=== PATIENT | female | born 1985 | race Caucasian/White ===

== ENCOUNTER 2023-09-13 10:59 | Outpatient (CLI) | payer MEDICAID, SELFPAY ==
[2023-09-13 12:02] VITALS: BP 112/67; PULSE 70
[2023-09-13 12:06] VITALS: BP 112/67; PULSE 70; TEMP 36.5
--- NOTE | 2023-09-29 12:27 | W.OBNST ---
Date of service: 09/29/23 Time of Service: 12:27 NST Evaluation Reason for NST Reasons for Nonstress Test: GDM-INSULIN Gestational Age Gestational Age in Weeks and Days: 37 Weeks and 2Days Test and Monitor Explained Test/Monitor Explained: Test Explained Vital Signs Blood Pressure: 112/67 Pulse: 70 Temperature: 97.7 F Urine Results Urine Protein: Negative Urine Ketones: Negative Urine Glucose: Negative Urine Blood: Negative NST Information Date on Monitor: 09/13/23 Time on Monitor: 11:54 NST Interventions: None NST Evaluation Patient States Movement: Present FHR Baseline: 130 Variability: Moderate 6-25 bpm Accelerations: 15x15 Decelerations: None NST Results: Reactive Note Ultrasound Done: N/A. NST Note Note: Reactive NST. NST Reviewed and Verified by: Kathia Menchaca
[2023-09-29 12:28] VITALS: BP 112/67; PULSE 70; TEMP 36.5
== END 2023-09-13 12:30 | disposition home or self-care (01) ==
LOC: BCD 11:00 → OBS 11:58
PROVIDERS: Visit Provider Advanced Practice Midwife
DX: O24.414 Gestational diabetes mellitus in pregnancy, insulin controlled (principal); Z3A.37 37 weeks gestation of pregnancy
CPT/HCPCS: 59025

== ENCOUNTER 2023-10-03 07:38 | Inpatient (IN) | payer MEDICAID, SELFPAY ==
[2023-10-03] VITALS (7 sets, daily range): BP systolic 135–137; BP diastolic 76–86; PULSE 88–103; RESP 16; TEMP 36.3–36.9; BMI 31.9
--- NOTE | 2023-10-03 07:41 | HPE_ITS ---
Date of service: 10/03/23 Time of Service: 08:00 Assessment and Plan Assessment and plan (1) Large for gestational age fetus affecting management of mother, antepartum: Status: Acute Assessment and plan: Pt is aware of the risk of shoulder dystocia. She was cautioned against the actual delivery in the tub to allow for more easy maneuvering if there is a shoulder dystocia. The team is aware of the risk. (2) Gestational diabetes mellitus (GDM): Status: Acute Assessment and plan: It has been well controlled on 10U NPH (3) Normal labor: Status: Acute Assessment and plan: Pt continuing to labor in various positions. (4) GBS (group B Streptococcus carrier), +RV culture, currently : Status: Acute Assessment and plan: Pt declines PCN treatment. She is aware of the risk for infection. OB-HPI Labor/Delivery History of Present Illness Reason for Visit: Labor Chief Complaint: Suspected Labor. UMAIR Calculator Estimated Delivery Date Method Current WG Current Estimate 10/02/23 LMP (Certain) 40w 1d Other Estimates 09/28/23 Ultrasound #1 40w 5d 10/04/23 Ultrasound #2 39w 6d History of Present Expected Delivery Route/Plan FOB [place]. Specific Issues/Plan -Pt entered care with [facility] @ 17w4d -GDM. Elevated 1hr Glucola @ 27w EGA. Diet control until 09/05/23. 10units NPH at bedtime beginning 36w1d 2/2 FCBGs 09/05/23. 36w1d Level 2 u/s at [facility]. Nl RANDA. AC 99%tile. EFW 80% 3174gm, 7lb 0oz. 09/13/23. 37w2d Transfer to [place] [facility]. counseled to have 2x/w NSTs. counseled to have IOL @39w - declines -LGA baby: 09/05/23 efw 7lbs (80%ile with AC >99%ile) -? bilateral talipes equinovarus (could not r/o club feet at 36wk sono) Narrative: Pt experienced ROM of clear fluid while in bed at 2am. Contractions started soon after that and by 5am they were about 5min apart. No bleeding. She arrived to the center around 7:15am. She has had some nausea and vomiting. Review of Systems Constitutional Constitutional: Reports system reviewed and no additional complaints, except as documented Genitourinary Genitourinary: Reports system reviewed and no additional complaints, except as documented Musculoskeletal Comments: No regular contractions PFSH All Active Problems (Updated 10/03/23 @ 08:03 by Macarena Correia MD) GBS (group B Streptococcus carrier), +RV culture, currently (Acute) Normal labor (Acute) Large for gestational age fetus affecting management of mother, antepartum (Acute) Gestational diabetes mellitus (GDM) (Acute) AC >99%ile Social History Smoking risk assessment performed?: No History History 1 Para Hx # Term Pregnancies Multiple births Hx # Pregnancies Ectopic pregnancies AB induced Hx Number of Living Children AB spontaneous Meds Allergies and Home Medications Allergies Allergy/AdvReac Type Severity Reaction Status Date / Time No Known Allergies Allergy Verified 09/28/23 13:45 Home Medications Medication Instructions Recorded Confirmed Type full well PO 09/13/23 09/28/23 History insulin NPH isoph U-100 human 100 10 unit (0.1 mL) subcut QPM #15 mL 09/13/23 09/28/23 Rx unit/mL (3 mL) subcutaneous pen (Novolin N FlexPen) blood-glucose meter (OneTouch #1 ea 09/29/23 09/29/23 Rx Ultra2 Meter) lancets 33 gauge (OneTouch Delica #100 ea 09/29/23 09/29/23 Rx Plus Lancet) Exam Physical Exam Vital signs: afebrile. Awaiting the rest of the vitals Detailed Labor and Delivery Exam Dilation: 8 Effacement (%): 90 Coleman Score: Cervical Points Exam 0 1 2 3 Dilation Closed 1-2cm 3-4 cm 5-6cm Effacement 0-30% 40-50% 60-70% 80% Consistency Firm Medium Soft Station -3 -2 -1,0 +1,+2 Position Posterior Mid Anterior Comments: Pt checked while in hands and knees so exact station was difficult to determine. Fetus A Heart Rate Baseline: 125 Detailed HEENT Exam Head: Present normocephalic and atraumatic Detailed Abdominal Exam Comments: gravid, nontender Detailed Neurological Exam Neurological: Present alert, oriented X3 and CN II-XII intact DetailedPsychiatric Exam Psychiatric: Present normal affect, normal thought process and cooperative Risk Assessment Risks Reviewed Risks Reviewed Upon Admission: Yes (Shoulder dystocia)
--- NOTE | 2023-10-03 08:57 | W.PM.OBNL1 ---
Date of service: 10/03/23 Time of Service: 09:00 Fetus A Monitor: Doppler Heart Rate Baseline: 140 Presentation: Cephalic FHR Rhythm: Regular Assessment and Plan Assessment and plan (1) Normal labor: Status: Acute Assessment and plan: Pt laboring in the tub. Lauren Thomas CPM present in room. FHR monitoring every half hour and reassuring. Pt tolerating contractions. (2) Large for gestational age fetus affecting management of mother, antepartum: Status: Acute Assessment and plan: Anesthesia providers notified of presence of pt on BC. Plan for appropriated dystocia awareness at time of delivery. Qualifiers: Fetus number: single or unspecified fetus Qualified Code(s): O36.60X0 - Maternal care for excessive growth, unspecified trimester, not applicable or unspecified (3) Gestational diabetes mellitus (GDM): Status: Acute Qualifiers: Gestational diabetes mellitus control: insulin-controlled Trimester: third trimester Qualified Code(s): O24.414 - Gestational diabetes mellitus in , insulin controlled
[2023-10-03 10:14] LABS: HCT 40.7 % (36.0-46.0); HGB 13.8 g/dL (11.2-15.7); MCH 31.3 pg (27.0-33.0); MCHC 33.9 % (32.0-36.0); MCV 92 fL (80-95); MPV 12.2 fL (8.0-11.0); Platelet Count 212 10^3/uL (130-400); RBC 4.41 10^6/uL (3.93-5.22); RDW-SD 43.8 fL; WBC 14.98 10^3/uL (4.4-10.8)
--- NOTE | 2023-10-03 10:59 | W.PM.OBNL1 ---
Date of service: 10/03/23 Time of Service: 10:59 Pelvic Exam Dilation: 10 Effacement (%): 100 station: +1 Vaginal Exam Presentation: Vertex Comments: There has been descent of vertex. Pt guided with maternal expulsive efforts while lying on R side. Will encourage pushing with contractions. Fetus A Monitor: External (US) Heart Rate Baseline: 145 Presentation: Cephalic Characteristics: Normal Assessment and Plan Assessment and plan (1) GBS (group B Streptococcus carrier), +RV culture, currently : Status: Acute Assessment and plan: Pt was counseled by admitting provider regarding recommendation for PCN while in active labor. No antibiotics administered (2) Normal labor: Status: Acute Assessment and plan: Pt will begin maternal expulsive efforts. (3) Large for gestational age fetus affecting management of mother, antepartum: Status: Acute Assessment and plan: satisfactory labor progress. Qualifiers: Fetus number: single or unspecified fetus Qualified Code(s): O36.60X0 - Maternal care for excessive growth, unspecified trimester, not applicable or unspecified Objective Abnormal lab results 10/03/23 Range/Units 09:50 WBC 14.98 H (4.4-10.8) 10^3/uL MPV 12.2 H (8.0-11.0) fL Temp Pulse Resp BP 98.1 F 103 H 16 135/83 10/03/23 09:09 10/03/23 08:15 10/03/23 08:15 10/03/23 08:15 Laboratory Results WBC 14.98 10^3/uL (4.4-10.8) H 10/03/23 09:50 RBC 4.41 10^6/uL (3.93-5.22) 10/03/23 09:50 Hgb 13.8 g/dL (11.2-15.7) 10/03/23 09:50 Hct 40.7 % (36.0-46.0) 10/03/23 09:50 MCV 92 fL (80-95) 10/03/23 09:50 MCH 31.3 pg (27.0-33.0) 10/03/23 09:50 MCHC 33.9 % (32.0-36.0) 10/03/23 09:50 RDW 13.0 % (11.7-14.6) 10/03/23 09:50 Plt Count 212 10^3/uL (130-400) 10/03/23 09:50 MPV 12.2 fL (8.0-11.0) H 10/03/23 09:50 Subjective Patient Reports: No new Complaints Interval history since last seen: SVE ~ 1 hour ago when pt sitting on toilet. Complete dilation with vtx at 0 station. Intermittent auscultation q 30min. No maternal expulsive efforts at this time. Results Hemoglobin/Hematocrit: Hgb 13.8 g/dL (11.2-15.7) 10/03/23 09:50 Hct 40.7 % (36.0-46.0) 10/03/23 09:50 Abnormal Lab Findings: Abnormal Labs 10/03/23 09:50 WBC 14.98 H MPV 12.2 H
--- NOTE | 2023-10-03 12:12 | W.PM.OBNL1 ---
Date of service: 10/03/23 Time of Service: 12:13 Pelvic Exam Dilation: 10 Effacement (%): 100 station: +1 Comments: 2cm of caput present. Pt pushing effectively with contractions. Will continue position changes to support effective maternal pushing. Contractions Monitor Mode: Palpation Contraction Frequency(min): q3 Contraction Duration(sec): 45 Intensity: Moderate Fetus A Monitor: Doppler Heart Rate Baseline: 140 Presentation: Cephalic Characteristics: Normal Assessment and Plan Assessment and plan (1) Large for gestational age fetus affecting management of mother, antepartum: Status: Acute Qualifiers: Fetus number: single or unspecified fetus Qualified Code(s): O36.60X0 - Maternal care for excessive growth, unspecified trimester, not applicable or unspecified (2) Normal labor: Status: Acute Objective Abnormal lab results 10/03/23 Range/Units 09:50 WBC 14.98 H (4.4-10.8) 10^3/uL MPV 12.2 H (8.0-11.0) fL Temp Pulse Resp BP 98.1 F 103 H 16 135/83 10/03/23 09:09 10/03/23 08:15 10/03/23 08:15 10/03/23 08:15 Laboratory Results WBC 14.98 10^3/uL (4.4-10.8) H 10/03/23 09:50 RBC 4.41 10^6/uL (3.93-5.22) 10/03/23 09:50 Hgb 13.8 g/dL (11.2-15.7) 10/03/23 09:50 Hct 40.7 % (36.0-46.0) 10/03/23 09:50 MCV 92 fL (80-95) 10/03/23 09:50 MCH 31.3 pg (27.0-33.0) 10/03/23 09:50 MCHC 33.9 % (32.0-36.0) 10/03/23 09:50 RDW 13.0 % (11.7-14.6) 10/03/23 09:50 Plt Count 212 10^3/uL (130-400) 10/03/23 09:50 MPV 12.2 fL (8.0-11.0) H 10/03/23 09:50 ABO/Rh B Positive 10/03/23 09:50 Antibody Screen NEGATIVE 10/03/23 09:50 Results Hemoglobin/Hematocrit: Hgb 13.8 g/dL (11.2-15.7) 10/03/23 09:50 Hct 40.7 % (36.0-46.0) 10/03/23 09:50 Abnormal Lab Findings: Abnormal Labs 10/03/23 09:50 WBC 14.98 H MPV 12.2 H
--- NOTE | 2023-10-03 14:55 | W.PM.OBNL1 ---
Date of service: 10/03/23 Time of Service: 14:55 Pelvic Exam station: +2 Comments: There has been progress since previous SVE. presenting part is lower and caput is no greater. I counseled pt that she has made progress and that I would encourage her to continue maternal expulsive efforts in lateral lying positions. Contractions Monitor Mode: Palpation Contraction Frequency(min): q3 Contraction Duration(sec): 45 Intensity: Moderate Fetus A Monitor: Doppler FHR Rhythm: Regular Assessment and Plan Assessment and plan (1) Normal labor: Status: Acute Assessment and plan: continue with current management. (2) Large for gestational age fetus affecting management of mother, antepartum: Status: Acute Qualifiers: Fetus number: single or unspecified fetus Qualified Code(s): O36.60X0 - Maternal care for excessive growth, unspecified trimester, not applicable or unspecified Objective Abnormal lab results 10/03/23 Range/Units 09:50 WBC 14.98 H (4.4-10.8) 10^3/uL MPV 12.2 H (8.0-11.0) fL Temp Pulse Resp BP 98.4 F 88 16 137/86 10/03/23 14:38 10/03/23 14:38 10/03/23 14:38 10/03/23 14:38 Laboratory Results WBC 14.98 10^3/uL (4.4-10.8) H 10/03/23 09:50 RBC 4.41 10^6/uL (3.93-5.22) 10/03/23 09:50 Hgb 13.8 g/dL (11.2-15.7) 10/03/23 09:50 Hct 40.7 % (36.0-46.0) 10/03/23 09:50 MCV 92 fL (80-95) 10/03/23 09:50 MCH 31.3 pg (27.0-33.0) 10/03/23 09:50 MCHC 33.9 % (32.0-36.0) 10/03/23 09:50 RDW 13.0 % (11.7-14.6) 10/03/23 09:50 Plt Count 212 10^3/uL (130-400) 10/03/23 09:50 MPV 12.2 fL (8.0-11.0) H 10/03/23 09:50 ABO/Rh B Positive 10/03/23 09:50 Antibody Screen NEGATIVE 10/03/23 09:50 Subjective Patient Reports: No new Complaints Interval history since last seen: pushing with contractions. Pt resting on R side. Tolerating contractions well. Results Hemoglobin/Hematocrit: Hgb 13.8 g/dL (11.2-15.7) 10/03/23 09:50 Hct 40.7 % (36.0-46.0) 10/03/23 09:50 Abnormal Lab Findings: Abnormal Labs 10/03/23 09:50 WBC 14.98 H MPV 12.2 H
--- NOTE | 2023-10-03 17:03 | W.PM.OBNL1 ---
Date of service: 10/03/23 Time of Service: 17:03 Informed Consent Informed Consent: Risk,Benefits,Alternatives Discussed (16:30 regarding Oxytocine augmentation, GBS IV prophylaxis.) Pelvic Exam Comments: Pelvic exam deferred. Pt siting on toilet during the conversation. Assessment and Plan Assessment and plan (1) Prolonged second stage (of labor): Status: Acute Assessment and plan: Pt has been engaged in maternal expulsive efforts since 11:30. vertex remains at +2 station with caput that has been stable in size. FHR continues to be monitored during contractions. No decelerations or irreg rhythm. Pt has declined Oxytocin for augmentation of labor. Will continue to assess labor progress at regular intervals. (2) GBS (group B Streptococcus carrier), +RV culture, currently : Status: Acute Assessment and plan: Pt was counseled regarding need for prophylatic antibiotics. SHe has declinedand antibiotic therapy until 18 hours has elapsed from SROM. Objective Abnormal lab results 10/03/23 Range/Units 09:50 WBC 14.98 H (4.4-10.8) 10^3/uL MPV 12.2 H (8.0-11.0) fL Temp Pulse Resp BP 98.4 F 88 16 137/86 10/03/23 14:38 10/03/23 14:38 10/03/23 14:38 10/03/23 14:38 Laboratory Results WBC 14.98 10^3/uL (4.4-10.8) H 10/03/23 09:50 RBC 4.41 10^6/uL (3.93-5.22) 10/03/23 09:50 Hgb 13.8 g/dL (11.2-15.7) 10/03/23 09:50 Hct 40.7 % (36.0-46.0) 10/03/23 09:50 MCV 92 fL (80-95) 10/03/23 09:50 MCH 31.3 pg (27.0-33.0) 10/03/23 09:50 MCHC 33.9 % (32.0-36.0) 10/03/23 09:50 RDW 13.0 % (11.7-14.6) 10/03/23 09:50 Plt Count 212 10^3/uL (130-400) 10/03/23 09:50 MPV 12.2 fL (8.0-11.0) H 10/03/23 09:50 ABO/Rh B Positive 10/03/23 09:50 Antibody Screen NEGATIVE 10/03/23 09:50 Subjective Interval history since last seen: Pt has been completely dilated since 0930 this morning. She has been pushing with contractions since 11:30 this morning ~ 5 hours. Her maternal effort has been adequate and she has been pushing in a variety of positions during that time. Pt had declined Penicillin for GBS RV Cx upon admission and again 16:30 when the pt and her , Lauren Thomas CPM and myself discussed her labor progress. Pt and her decline Oxytocin augmentation of labor. I expressed to them my concern that she may not be able to deliver vaginally without Oxytocin augmentation. I also addressed the risk of an ascending vaginal infection with ROM and GBS RV Cx. They agree to initiation of GBS prophylaxis but not before 18 hours after SROM. She will continue with maternal expulsive efforts without labor augmentation. Results Hemoglobin/Hematocrit: Hgb 13.8 g/dL (11.2-15.7) 10/03/23 09:50 Hct 40.7 % (36.0-46.0) 10/03/23 09:50 Abnormal Lab Findings: Abnormal Labs 10/03/23 09:50 WBC 14.98 H MPV 12.2 H
--- NOTE | 2023-10-03 20:11 | NUR.NOTE ---
Nursing Note: This RN entered room to check VS, pt out of bed and lunging around room, listening to music. Pt states her plan is to continue this until 2030.
--- NOTE | 2023-10-03 21:13 | PGE_ITS ---
Date of service: 10/03/23 Time of Service: 21:13 Informed Consent Informed Consent: Section Delivery (Pt counseled of need for primary delivery for arrest of descent.) and Risk,Benefits,Alternatives Discussed (16:30 regarding Oxytocine augmentation, GBS IV prophylaxis.) Pelvic Exam station: +2 Contractions Monitor Mode: External Contraction Frequency(min): q3 Contraction Duration(sec): 45 Fetus A Heart Rate Baseline: 120 Presentation: Vertex Variability: Moderate (6-25 BPM) Categories: Category I Assessment and Plan Assessment and plan (1) Prolonged second stage (of labor): Status: Acute Assessment and plan: Pt counseled to proceed with a delivery (2) GBS (group B Streptococcus carrier), +RV culture, currently : Status: Acute Objective Abnormal lab results 10/03/23 Range/Units 09:50 WBC 14.98 H (4.4-10.8) 10^3/uL MPV 12.2 H (8.0-11.0) fL Temp Pulse Resp BP 97.9 F 96 H 16 137/76 10/03/23 21:03 10/03/23 18:42 10/03/23 14:38 10/03/23 18:42 Laboratory Results WBC 14.98 10^3/uL (4.4-10.8) H 10/03/23 09:50 RBC 4.41 10^6/uL (3.93-5.22) 10/03/23 09:50 Hgb 13.8 g/dL (11.2-15.7) 10/03/23 09:50 Hct 40.7 % (36.0-46.0) 10/03/23 09:50 MCV 92 fL (80-95) 10/03/23 09:50 MCH 31.3 pg (27.0-33.0) 10/03/23 09:50 MCHC 33.9 % (32.0-36.0) 10/03/23 09:50 RDW 13.0 % (11.7-14.6) 10/03/23 09:50 Plt Count 212 10^3/uL (130-400) 10/03/23 09:50 MPV 12.2 fL (8.0-11.0) H 10/03/23 09:50 ABO/Rh B Positive 10/03/23 09:50 Antibody Screen NEGATIVE 05/21/24 09:50 Objective Narrative Objective Narrative: No appreciable cervical change despite seemingly adequate contractions. There is molding of the head with caput. I have counseled both the patient and her both the need for a primary delivery. They were counseled regarding the risk of infection damage to surrounding structures including bowel bladder ureters need for transfusion and possible I also informed them that oxytocin is not an option to augment her labor because I do not feel that it will be of any benefit. They are discussing their options and I will follow- up with them in a few minutes Results Hemoglobin/Hematocrit: Hgb 13.8 g/dL (11.2-15.7) 10/03/23 09:50 Hct 40.7 % (36.0-46.0) 10/03/23 09:50 Abnormal Lab Findings: Abnormal Labs 10/03/23 09:50 WBC 14.98 H MPV 12.2 H
--- NOTE | 2023-10-03 21:27 | ANES.PREOP_ITS ---
General Info Date of Service Date Performed: 10/03/23 Height: 5 ft 5 in Weight: 87.09 kg Body Mass Index (BMI): 31.9 Meds Allergies and Home Medications Allergies Allergy/AdvReac Type Severity Reaction Status Date / Time No Known Allergies Allergy Verified 09/28/23 13:45 Home Medication Medication Instructions Recorded full well PO 09/13/23 insulin NPH isoph U-100 human 100 10 unit (0.1 mL) subcut QPM #15 mL 09/13/23 unit/mL (3 mL) subcutaneous pen (Novolin N FlexPen) blood-glucose meter (MoblicoTouch #1 ea 09/29/23 Ultra2 Meter) lancets 33 gauge (OneTouch Delica #100 ea 09/29/23 Plus Lancet) Current Visit Medications: Current Medications Generic Name Dose Route Start Last Admin Trade Name Freq PRN Reason Stop Dose Admin Citric Acid/Sodium Citrate 30 ml 10/03/23 22:00 Sodium Citrate 30 Ml Cup PO PREOP YEE Cefazolin Sodium/Dextrose 2 gm in 50 mls @ 100 mls/hr 10/03/23 21:15 Ancef Duplex IVPB PREOP YEE Azithromycin 500 mg/ Sodium 250 mls @ 250 mls/hr 10/03/23 21:15 Chloride IVPB PREOP YEE Ringer's Solution 1,000 mls @ 200 mls/hr 10/03/23 21:15 IV INFUSION YEE IV Miscellaneous Supplies 1 each 10/03/23 07:45 Iv Access IV DIRECTED YEE IV Miscellaneous Supplies 1 each 10/03/23 21:15 Iv Access IV DIRECTED YEE Sodium Chloride 0 ml 10/03/23 07:37 Normal Saline Flush 10 Ml Syr IVP PRN PRN Sodium Chloride 0 ml 10/03/23 21:11 Normal Saline Flush 10 Ml Syr IVP PRN PRN Sodium Chloride 0 ml 10/04/23 08:30 Normal Saline Flush 10 Ml Syr IVP BID YEE Sodium Chloride 0 ml 10/03/23 21:11 Normal Saline 10 Ml Vial IJ DIRECTED PRN PFSH Active Problems Active Problems: Problem Status Onset Code Prolonged second stage (of labor) O63.1 GBS (group B Streptococcus carrier), +RV culture, currently O99.820 Normal labor O80, Z37.9 Large for gestational age fetus affecting management of mother, antepartum O36.60X0 Gestational diabetes mellitus (GDM) O24.419 Tobacco Smoking/Tobacco Use Status: Never Alcohol Alcohol Intake: current Prental History History 2 1 Para 0 Hx # Term Pregnancies Multiple births Hx # Pregnancies Ectopic pregnancies AB induced Hx Number of Living Children AB spontaneous Vital Signs and Lab Results Vital Signs Most Recent Vital Signs in EMR: Most Recent Vital Signs Temp Pulse Resp BP 36.6 C 96 H 16 137/76 10/03/23 21:03 10/03/23 18:42 10/03/23 14:38 10/03/23 18:42 Lab Results 10/03/23 09:50 Blood Type / Crossmatch: 2 Antibody Screen NEGATIVE 10/03/23 Complete Blood Count: 2 White Blood Count 14.98 10^3/uL (4.4-10.8) H 10/03/23 09:50 Red Blood Count 4.41 10^6/uL (3.93-5.22) 10/03/23 09:50 Hemoglobin 13.8 g/dL (11.2-15.7) 10/03/23 09:50 Hematocrit 40.7 % (36.0-46.0) 10/03/23 09:50 Platelet Count 212 10^3/uL (130-400) 10/03/23 09:50 Complete Metabolic Panel: 2 No Data to Display Liver Function Panel: 2 No Data to Display Coagulation Panel: 2 No Data to Display Cardiac Panel: 2 No Data to Display Arterial Blood Gas: 2 No Data to Display Venous Blood Gas: 2 No Data to Display Pancreas Panel: 2 No Data to Display Thyroid Panel: 2 No Data to Display Infectious Disease: 2 No Data to Display Blood Cultures: 2 No Data to Display Toxicology Panel: 2 No Data to Display Panel: 2 No Data to Display Anesthesia Assessment and Plan Anesthesia History Personal History: No History of Anesthesia Complications Family History: No Family History of Anesthesia Complications Exercise Tolerance Exercise Tolerance: Metabolic Equivalents>4 Pertinent Negatives Pertinent Negatives: No Symptoms of GERD, No Major Cardiovascular Symptoms or Complaints, No Major Pulmonary Symptoms or Complaints and No History of CVA/TIA Cardiac & Pulmonary Exam Cardiac Exam: Normal S1/S2 Heart Sounds Pulmonary Exam: Clear Bilateral Breath Sounds Implantable Cardiac Device Does patient have a Pacemaker or an ICD?: No Airway Exam Known Difficult Airway: No Mallampati Class: 2 Mouth Opening: Normal (> 3cm) Thyromental Distance: Greater than 3 cm Neck Range of Motion: Full ROM Neck Circumference: Normal Teeth Condition: Normal Dentition (chip bottom lower) ASA Classification ASA Score: ASA 3 Emergency Case?: Yes NPO Status NPO Status: Full Stomach (consider full stomach, ) Status Status: Confirmed Anesthesia Plan Resuscitation Status: Full Code Anesthesia Technique: Spinal Anesthesia Airway Planned: Natural Airway Pain Management: Intrathecal Analgesia Monitors Used: Standard Monitors Preoperative Comments:: Insulin dependent gestational diabetes. Failure to progress.
[2023-10-03] MEDS: Azithromycin 500 MG VIAL (21:56)
--- NOTE | 2023-10-03 21:57 | NUR.NOTE ---
Nursing Note:[id number] Consent for C/s Signed after much deliberation by pt and . Pt asked about trying pitocin. counseled.
[2023-10-03] MEDS: Lactated Ringers 1,000 ML 200 ML IV (22:17)
[2023-10-03] MEDS: Bupivacaine 0.25% Pres-Free 30 ML VIAL (23:05)
[2023-10-03] MEDS: ceFAZolin 2 GM/50 ML BAG 100 GM (23:10)
--- NOTE | 2023-10-03 23:10 | PLAC_PTH ---
PATIENT: Maddison Bennett LOC: OBS U#:[id number] AGE/SX: 37/F ROOM: OBS.300 RE10/03/[address]: Kathia Menchaca : 1985 BED: A DIS: 10/07/2023 SPEC #: [id number] RECD: 10/04/23 12:48 STATUS: SOULeroy REQ #: [id number] CARTER: 10/03/23 23:[address]: Kathia Menchaca DEPT: Surgical Specimen RECD BY: Megan Aquino ENTERED: 10/04/23 12:49 SP TYPE: PLAC OTHR DR: Unknown,Unknown Tissues: 1 - PLACENTA (3RD TRIMESTER) Procedures: GROSS AND MICRO LEVEL 5 Comments: [id number]
[2023-10-03] MEDS: metroNIDAZOLE 100 ML 100 MG (23:23)
[2023-10-04] VITALS (24 sets, daily range): BP systolic 96–137; BP diastolic 59–76; PULSE 98–137; RESP 16–18; TEMP 36.7–37.4; O2SAT 98–100
[2023-10-04] MEDS: Ketorolac 30 MG/ML VIAL IVP ×3 (06:31→17:50)
[2023-10-04 06:52] LABS: Abs Immature Grans 0.05 10^3/uL (0.0-0.06); Absolute Basophil Count 0.05 10^3/uL (0.0-0.2); Absolute Eosinophil Count 0.01 10^3/uL (0.0-0.7); Basophils % 0.4 %; Eosinophils % 0.1 %; HCT 27.3 % (36.0-46.0); HGB 9.4 g/dL (11.2-15.7); Immature Grans % 0.4 %; Lymphocytes % 8.3 %; MCH 31.4 pg (27.0-33.0); MCHC 34.4 % (32.0-36.0); MCV 91 fL (80-95); MPV 11.4 fL (8.0-11.0); Monocytes % 7.5 %; Neutrophils % 83.3 %; Platelet Count 165 10^3/uL (130-400); RBC 2.99 10^6/uL (3.93-5.22); RDW 13.4 % (11.7-14.6); RDW-SD 43.3 fL; WBC 13.29 10^3/uL (4.4-10.8)
[2023-10-04 06:56] LABS: Absolute Neutrophil Count 11.07 10^3/uL (1.2-6.7)
[2023-10-04] MEDS: Lactated Ringers 1,000 ML 200 ML IV (08:20)
--- NOTE | 2023-10-04 09:12 | W.PM.OBCSECT ---
Date of service: 10/04/23 Time of Service: 09:13 Operative Note Operative Note Delivery Method: Unscheduled STAT: No and Primary NTSV>37 Weeks: Yes DATE OF PROCEDURE: 10/04/23 PRE-OP DIAGNOSES: arrest of descent POST-OP DIAGNOSES: same GBS rectal vaginal culture without antibiotic prophylaxis. Gestational diabetes, insulin requiring PROCEDURE: Primary LTCS with extension of uterine and Pfannenstiel skin incision cephalad in vertical fashion SURGEON: Kathia Menchaca Assisting Surgeon: Dawna Mcbride Anesthesia: spinal Estimated blood loss (mL): 500 Pathology: other (placenta to pathology) Complications: Other (a full thickness extension of uterine incision was performed 5cm cephalad ) Patient was transported to: floor Patient's condition: stable Indications: 37yo female presented at 40w1d EGA with SROM 09/03/23 @ 0100 followed by onset of painful regular contractions. Upon arrival to Center her cervix was 8cm dilated. She was completely dilated at 0930. Maternal expulsive began at 11:30 until she proceeded to delivery room at approximately 2200. She proceeded to labor throughout the day with contractions every 2-3min and FHR via doppler 120-140 BPM. Pt remained afebrile. Pt and were actively involved in the decision making regarding labor interventions. They requested expectant management of protracted 2nd phase of labor declining Oxytocin augmentation of labor until shortly before proceeding to the OR when they were advised against Oxytocin augmentation secondary expected lack of efficacy. They declined Penicillin for GBS prophylaxis. Findings: Viable female infant in the cephalic OA presentation with flexed head and deep into vaginal canal. Prominent sacral promitory with shoulders at pelvic inlet. Weight 3700 gm (8lb 3oz) Apgars 3/8. Contracted pelvic inlet. Nl placenta uterus and ovaries. Uterine incision: 22:48. Delivery of infant: 11:02. Total time attempting to deliver after uterus entered: 14 minutes. Attempts at obtaining a umbilical cord gas were unsuccessful. Procedure Description: Patient was taken to the operating room she is placed in the sitting position and spinal anesthesia was administered without difficulty. She was then placed in the dorsal supine position with a leftward tilt. SCDs and a Bryant catheter to gravity drainage were in place. A vaginal prep with Betadine was performed and the patient was prepped and draped in the usual sterile fashion.Surgical timeout was performed. Preop antibiotics were administered. After a adequate level of anesthesia was achieved a Pfannenstiel skin incision was made approximately 2 cm superior to the pubic symphysis using a scalpel. Pt had received ~ 10cc of subcutaneous 0.25% Marcaine without Epinephrine. The underlying subcutaneous tissue was dissected using Bovie electrocautery to the level of the rectus fascia. The rectus fascia was then nicked in the midline and the fascial incision extended laterally using Bovie electrocautery. 2 Ry clamps were applied to the superior rectus fascia and the rectus fascia was dissected off of the underlying rectus muscles using Bovie electrocautery and blunt technique. A similar technique was carried out on the inferior rectus fascia. Rectus muscles were then in the midline and the peritoneum entered bluntly. The peritoneal incision was extended laterally using blunt technique. The vesicle-uterine peritoneum over lower uterine segment was incised with a scalpel was used to incise the lower uterine segment in a transverse fashion. The uterine incision was extended bluntly and the amniotic sac was ruptured with clear amniotic fluid noted. Multiple attempts at grasping the presenting part were unsuccessful as we were unable have enough of coverage of the head to extend it from it's flexed position. The drape was then lifted and the patient frog legged and a sterile gloved hand was then inserted into the vagina in an attempt to dislodge the head upwards in the vagina. Two different providers during two successive attempts were unsuccessful in their attempts to elevate the head with the medical assistant supervisor directing the shoulders out of the pelvis. The transverse uterine incision was extended laterally using a bandage scissors with out any improvement of our access to the head or improvement in lifting the shoulders out of the pelvis. The skin and underlying fascia and peritoneum was then incised with a scalpel allowing access to the upper body of the uterus. A scalpel was used to incise and extend the uterine incision 5cm cephalad which allowed access to the arms which were delivered followed by the trunk, hips and legs respectively. The head was delivered using the Bracht Manuevre, the cord was doubly clamped and cut and the handed off to the pediatric team. A segment of umbilical cord was obtained and the placenta was extracted with a combination of fundal massage and gentle cord traction. The uterus was exteriorized and the vertical extension of the uterine incision was re-approximated in a series of layers using 0-Vicryl. The lateral extensions of the uterine incisions were then re-approximated with running 0-Vicryl sutures with care taken to identify the uterine vessels and determine that they were remote from the closures. The uterine incision was then closed with a single layer closure of 0-Vicryl and was hemostatic on inspection. The uterus was carefully inspected and returned to the abdomen. The bladder was then retrograde filled with 120cc of sterile formula and there was no evidence of leaking of the formula. The bladder was drained and bryant reattached to gravity drainage. The transverse rectus fascia was re-approximated with 0-Vicryl and the subcutaneous tissue closed with interrupted sutures of 2-0 Vicryl. The skin of Pfannenstiel skin incision was then re-approximated with 4-0 Monocryl subcuticular closure. Steri strips and a Mepilex dressing was applied. The uterus was massaged for any remaining clots and debris. The patient was transported to recovery area in stable condition. All sponge, lap, and needle counts correct x2. [place] Gender: Female weight: 8 lb 3 oz See Nursing Delivery Note for weight and Scores: 1min 3. 5 min 8.
--- NOTE | 2023-10-04 09:45 | OBPPV_ITS ---
Date of service: 10/04/23 Time of Service: 09:45 Assessment and Plan Assessment and plan (1) Status post section: Status: Acute Assessment and plan: Patient is postop day #1 status post primary section for arrest of descent, markedly prolonged second stage, complex section with teed uterine incision, and extension of her abdominal incision to accommodate delivery. Prolonged rupture of membranes with no antibiotic prophylaxis. Significant manipulation with break in sterile field. Received antibiotics including Ancef, Flagyl, and Zithromax perioperatively, and will continue on Ancef 2 g every 6 hours for total of 24 hours. Increase activity today. Maintain Woodard catheter to further assess appropriate urine output. Debriefing opportunities offered. Will continue to follow closely. Discussed at length, healing process with complexity of both uterine and abdominal wall incisions. (2) GBS (group B Streptococcus carrier), +RV culture, currently : Status: Acute (3) Prolonged second stage (of labor): Status: Acute Subjective Subjective Interval history: Patient was seen and examined this morning in the presence of her nurse, and her . We spent approximately 30 minutes debriefing on the process of her labor, and subsequent delivery yesterday. Conversations included, but not limited to her labor progress, her autonomy and decision making, her signifi cantly complex delivery which included 14 minutes of attempted extraction of baby from the pelvis including low transverse uterine incision, followed by pushing the vertex from below without significant success, to extending the abdominal incision to the umbilicus, and extending the uterine incision vertically to the fundus in order to allow for delivery. We discussed the uterine incision that was through the contractile portion of the myometrium which would preclude labor and vaginal in the future. Both she and her were grateful for the time they to make decisions related to her experience. She stated that they fully would accept all responsibility for their decisions and were grateful to have the outcome that they had currently. They were both offered more time to debrief. Will continue to update and share information over the course of her stay, and in her period. From a physical standpoint, they are both joyful, and feeling tired, though well. Her pain is well-controlled with her spinal analgesia. We discussed maintaining her Woodard catheter until her urine output is more brisk, we ensure that her vital signs are stable, and that she is able to ambulate. We also discussed moving, continued antibiotics for a total of 24 hours postdelivery in order to decrease surgical site infection, and her hemoglobin of 9.4 this morning. She is anticipating breast-feeding. She has been able to allow the baby to latch. And she remains at the skin to skin with her . Patient comments: Pain well controlled, Tolerating diet and Other (Grateful to have autonomy in the decision-making process. Excepting of responsibility of her decisions) [place] baby status: Doing well, Nursing well and Strong Bonding Observed [place] feeding status: Exclusively breast feeding Exam Physical Exam Vital signs: Temp Pulse Resp BP Pulse Ox 98.6 F 113 H 18 101/59 L 98 10/04/23 08:30 10/04/23 08:30 10/04/23 09:00 10/04/23 08:30 10/04/23 08:30 Vital Signs Reviewed: Yes Notable Details: Mild tachycardia Narrative: Appropriate urine output for the immediate postoperative period. Concentrated appearing urine. Stable hemoglobin. Appropriate vital signs Constitutional Constitutional: no acute distress and average body habitus Neck Exam Neck Exam: Normal Respiratory Exam Respiratory Exam: Normal Cardiovascular Exam Cardiovascular Exam: Normal Abdominal Exam Abdomen: Tender Comments: Incisions are dressed Extremities Exam Extremity Exam: Normal; negative Calf Tenderness or Edema Skin Exam Skin Exam: Normal Neurological Exam Neurological Exam: Normal Psychiatric Exam Psychiatric Exam: Normal (Processing the events of her delivery) Results Hemoglobin/Hematocrit: Hgb 9.4 g/dL (11.2-15.7) L D 10/04/23 06:40 Hct 27.3 % (36.0-46.0) L 10/04/23 06:40 Abnormal Lab Findings: Abnormal Labs 10/03/23 10/04/23 09:50 06:40 WBC 14.98 H 13.29 H RBC 2.99 L Hgb 9.4 L D Hct 27.3 L MPV 12.2 H 11.4 H Absolute Neutrophils 11.07 H Absolute Lymphocytes 1.10 L Absolute Monocytes 1.00 H
[2023-10-04] MEDS: Ibuprofen 600 MG TAB PO (23:33)
[2023-10-04] MEDS: Normal Saline Flush 10 ML SYR IVP (23:33)
[2023-10-04] MEDS: Acetaminophen 325 MG TAB 650 MG PO (23:33)
[2023-10-05] VITALS (7 sets, daily range): BP systolic 110–126; BP diastolic 60–78; PULSE 85–107; RESP 16–100; TEMP 36.6–37.1; O2SAT 97–99
[2023-10-05] MEDS: Acetaminophen 325 MG TAB 650 MG PO ×5 (03:19→21:12)
[2023-10-05] MEDS: Ibuprofen 600 MG TAB PO ×3 (08:07→19:35)
--- NOTE | 2023-10-05 08:37 | W.PM.OBPNV1 ---
Date of service: 10/05/23 Time of Service: 08:37 Assessment and Plan Assessment and plan (1) Status post section: Status: Acute Assessment and plan: Postop day #2 status post primary section with extension of both uterine incision and abdominal incision for delivery of female. Overall doing well. Pain is well-controlled. Has been up to the chair. Encourage ambulation today. Encourage good caloric intake. Vital signs are stable. Urine output is appropriate. Okay to DC IV today. Slow and steady progress. Events of delivery again reviewed today. Careful monitoring for depression. Support given. Exam Physical Exam Vital signs: Temp Pulse Resp BP Pulse Ox 97.9 F 107 H 16 116/77 98 10/05/23 07:45 10/05/23 07:45 10/05/23 07:45 10/05/23 07:45 10/05/23 07:45 Vital Signs Reviewed: Yes Constitutional Constitutional: no acute distress HEENT Exam HEENT Exam: Normal Respiratory Exam Respiratory Exam: Normal Cardiovascular Exam Cardiovascular Exam: Normal Abdominal Exam Abdomen: Tender Comments: Incision is dressed. Mild distention. Active bowel sounds. Soft. Fundal Exam Fundus: Below Umbilicus and Firm Extremities Exam Extremity Exam: Normal and Edema (1+ bilateral); negative Calf Tenderness Skin Exam Skin Exam: Normal Neurological Exam Neurological Exam: Normal Psychiatric Exam Psychiatric Exam: Normal Results Hemoglobin/Hematocrit: Hgb 9.4 g/dL (11.2-15.7) L D 10/04/23 06:40 Hct 27.3 % (36.0-46.0) L 10/04/23 06:40 Abnormal Lab Findings: Abnormal Labs 10/03/23 10/04/23 09:50 06:40 WBC 14.98 H 13.29 H RBC 2.99 L Hgb 9.4 L D Hct 27.3 L MPV 12.2 H 11.4 H Absolute Neutrophils 11.07 H Absolute Lymphocytes 1.10 L Absolute Monocytes 1.00 H
[2023-10-05] MEDS: Simethicone 80 MG CHEW PO ×2 (09:14→17:22)
--- NOTE | 2023-10-05 09:51 | W.ANESPOSTOP ---
Postoperative Evaluation Date, Time and Location Date Performed: 10/05/23 Time Performed: 08:25 Patient Location: Obstetrics Vital Signs Most Recent Imported Vital Signs: Most Recent Vital Signs Temp Pulse Resp BP Pulse Ox 36.6 C 107 H 16 116/77 98 10/05/23 07:45 10/05/23 07:45 10/05/23 07:45 10/05/23 07:45 10/05/23 07:45 Pain Score Most Recent Pain Score: Most Recent Pain Score Pain Level [Abdomen] 4 10/05/23 07:45 Pain Level 4 10/05/23 08:11 Assessment Mental Status: Awake (Alert & Oriented to Patient Baseline) Airway and Respiratory Function: Patent airway with normal (patient baseline) respiratory exam Cardiovascular Function: Hemodynamically Stable Hydration Status: Adequately Hydrated Nausea & Vomiting: No Nausea or Vomiting Pain: Pain is tolerable per patient Peripheral Nerve Block: Patient did not receive a nerve block
[2023-10-06] MEDS: Ibuprofen 600 MG TAB PO ×4 (01:19→22:31)
[2023-10-06] MEDS: Acetaminophen 325 MG TAB 650 MG PO ×4 (01:26→20:37)
[2023-10-06 03:00] VITALS: BP 112/75; PULSE 93; RESP 16; TEMP 36.8; O2SAT 97
[2023-10-06 08:30] VITALS: BP 120/80; PULSE 98; RESP 16; TEMP 36.9; O2SAT 98
--- NOTE | 2023-10-06 10:17 | W.PM.OBPNV1 ---
Date of service: 10/06/23 Time of Service: 10:17 Assessment and Plan Assessment and plan (1) Status post section: Status: Acute Assessment and plan: Postoperative day #3 status post section with extension through the myometrium for arrest of descent, prolonged, obstructed labor. Routine postoperative progress. Continue to work on breast-feeding, pumping, increase activity. Patient may shower, ambulate. Anticipate discharge 10/06. Subjective Subjective Interval history: Patient seen and examined this morning. Overall doing well physically. Vital signs are stable. Patient is urinating without difficulty. She has been ambulating to the bathroom. She has had bowel movements. Patient's Mood: Appropriate, processing events of delivery feeding status: Exclusively breast feeding Exam Physical Exam Vital signs: Temp Pulse Resp BP Pulse Ox 98.4 F 98 H 16 120/80 98 10/06/23 08:30 10/06/23 08:30 10/06/23 08:30 10/06/23 08:30 10/06/23 08:30 Vital Signs Reviewed: Yes Constitutional Constitutional: no acute distress HEENT Exam HEENT Exam: Normal Neck Exam Neck Exam: Normal Respiratory Exam Respiratory Exam: Normal Cardiovascular Exam Cardiovascular Exam: Normal Abdominal Exam Abdomen: Tender Comments: Mepilex dressing in place. Abdomen is soft, bowel sounds appropriate Extremities Exam Extremity Exam: Normal; negative Calf Tenderness Psychiatric Exam Psychiatric Exam: Normal Results Hemoglobin/Hematocrit: Hgb 9.4 g/dL (11.2-15.7) L D 10/04/23 06:40 Hct 27.3 % (36.0-46.0) L 10/04/23 06:40 Abnormal Lab Findings: Abnormal Labs 10/03/23 10/04/23 09:50 06:40 WBC 14.98 H 13.29 H RBC 2.99 L Hgb 9.4 L D Hct 27.3 L MPV 12.2 H 11.4 H Absolute Neutrophils 11.07 H Absolute Lymphocytes 1.10 L Absolute Monocytes 1.00 H
[2023-10-06 12:20] VITALS: BP 114/73; PULSE 97; RESP 18; TEMP 36.6; O2SAT 98
[2023-10-06 20:25] VITALS: BP 115/72; PULSE 95; RESP 19; TEMP 36.6; O2SAT 98
[2023-10-07] MEDS: Acetaminophen 325 MG TAB 650 MG PO ×4 (00:01→12:50)
[2023-10-07] MEDS: Ibuprofen 600 MG TAB PO ×2 (04:08→11:39)
--- NOTE | 2023-10-07 08:09 | W.PM.OBPNV1 ---
Date of service: 10/07/23 Time of Service: 08:09 Assessment and Plan Assessment and plan (1) Status post section: Status: Acute Assessment and plan: Postop day #4 status post primary section with extension of the incision to the uterine fundus. Overall doing well. Ambulating, tolerating regular diet and oral pain medication with stable vital signs. Breast-feeding with donor breastmilk supplementation if necessary. Anticipate discharge home today. Short interval follow-up in the office later this week. Patient desires transition of care back to home midwives. We did discuss the fact that surgical follow-up is appropriate and necessary. All questions were answered. Subjective Subjective Interval history: Patient seen and examined this morning. Overall doing well. Processing the events of her and delivery. Lengthy conversation regarding ongoing care, and healing, along with next pregnancies and delivery. She is not a candidate for trial of labor due to uterine incision. Patient's Mood: Appropriate [place] feeding status: Exclusively breast feeding and [place] Feeding Exam Physical Exam Vital signs: Temp Pulse Resp BP Pulse Ox 97.9 F 95 H 19 115/72 98 10/06/23 20:25 10/06/23 20:25 10/06/23 20:25 10/06/23 20:25 10/06/23 20:25 Vital Signs Reviewed: Yes Constitutional Comments: Doing well, no acute distress. Has been ambulating. Tolerating regular diet. Passing flatus. Bowel movements appropriate. Neck Exam Neck Exam: Normal Respiratory Exam Respiratory Exam: Normal Cardiovascular Exam Cardiovascular Exam: Normal Abdominal Exam Abdomen: Tender Comments: Mepilex dressing in place Fundal Exam Fundus: Below Umbilicus and Firm Extremities Exam Extremity Exam: Normal; negative Calf Tenderness Skin Exam Skin Exam: Normal Neurological Exam Neurological Exam: Normal Psychiatric Exam Psychiatric Exam: Normal Results Hemoglobin/Hematocrit: Hgb 9.4 g/dL (11.2-15.7) L D 10/04/23 06:40 Hct 27.3 % (36.0-46.0) L 10/04/23 06:40 Abnormal Lab Findings: Abnormal Labs 10/03/23 10/04/23 09:50 06:40 WBC 14.98 H 13.29 H RBC 2.99 L Hgb 9.4 L D Hct 27.3 L MPV 12.2 H 11.4 H Absolute Neutrophils 11.07 H Absolute Lymphocytes 1.10 L Absolute Monocytes 1.00 H
[2023-10-07 08:45] VITALS: BP 117/83; PULSE 101; RESP 18; TEMP 37
--- NOTE | 2023-10-07 08:52 | W.PM.OBDISCH ---
Date of service: 10/07/23 Time of Service: 08:52 DS: Diagnosis Discharge Diagnosis (1) Status post section: Status: Acute Asessment and Plan: Postop day #4 status post section due to prolonged second stage and obstructed labor. Ultimately patient had section with extension to the uterine fundus and is no longer a candidate for trial of labor or delivery vaginally. Ambulating, tolerating regular diet, oral pain medication. Breast-feeding and donor milk available. Short interval follow-up at [facility] this week for surgical care. Discharge Plan Disposition Patient Disposition: Home Condition: Improving Discharge Details Reason For Visit: Labor Admit Date/Time: 10/03/23 07:38 Admit Provider: Kathia Menchaca Attending Provider: Kathia Menchaca Primary Care Provider: Unknown,Unknown Hospital Course Hospital Course: Patient was admitted to the center at 40 weeks and 1 day in active labor, 8 cm dilated. She has a known diagnosis of gestational diabetes requiring insulin. She had been extensively counseled by her midwives, and all physicians involved in her care regarding appropriate surveillance, and labor along with the labor process. She did arrest her labor and declined intervention over the course of approximately 2010 hrs. She declined utilization of antibiotic prophylaxis for group B strep. Ultimately, she was taken to the OR for delivery after consenting to the surgical procedure. Her surgical procedure was complex and that, under spinal anesthesia, Pfannenstiel skin incision was initially made and low transverse uterine incision, however after multiple maneuvers in order to elevate the baby out of the maternal pelvis and a total uterine incision to delivery time of 14 minutes, uterine incision was extended to the fundus as well as abdominal incision extended to the umbilicus to allow for delivery of the baby with the breech delivered through the incision. Baby had Apgars post operative of 3 and 8 and the baby had a relatively uncomplicated course. For the mom, postoperative hemoglobin was 9.4. Vitals remained stable throughout the course of her stay. She was transition from parenteral pain medication to oral pain medication, increased her activity to appropriate ambulation, had a Woodard catheter that was initially placed discontinued at 24 hours. She has had appropriate urine output. Her pain is well-controlled, she will be discharged to home postoperative day #4. Her follow-up will be in the office for surgical follow-up in approximately 4 to 5 days. She is also requesting that her midwifery group continue to see her in the period for routine maintenance. Surgical follow-up will be at [facility]. Patient and her were given ample opportunity to debrief the situation. They were appreciative of the care that they received. They were appreciative of the autonomy to make decisions regarding their labor and process. Home Meds and New Rx's Prescriptions: New ibuprofen 800 mg tablet 800 mg PO Q8H PRNQty: 90 1RF docusate sodium [Colace] 100 mg capsule 100 mg PO BID Qty: 60 0RF Discontinued Novolin N FlexPen 100 unit/mL (3 mL) insulin pen 10 unit subcut QPM Qty: 15 0RF No Action full well PO (DME) lancets [OneTouch Delica Plus Lancet] 33 gauge misc See Rx Instructions .Route Qty: 100 2RF Rx Instructions: As directed 4x daily (DME) blood-glucose meter [OneTouch Ultra2 Meter] Misc See Rx Instructions .Route Qty: 1 0RF Rx Instructions: As directed - use 4x daily Discharge Instructions Additional Instructions: Follow-up with Dr. Mcbride [facility] in 4 to 5 days Activity:: No heavy lifting Equipment/Supplies:: No Equipment Needed Diet:: As Tolerated Discharge Orders Discharge Orders: Discharge Order (Routine); Ordered 10/07/23 Ordered By: Dawna Mcbride OB:DS Summary Contraception Discussed Contraception Discussed: No (unsure), Gender-Baby A: Female weight: 8 lb 3 oz Status at Discharge Functional status at discharge: independent ambulation Overall status at discharge: patient is progressing back to baseline Mental Status: mental status grossly normal Speech and Movement: speech and movement normal Mood: congruent mood Affect: normal affect Quality:SDOH Health Related Social Needs: No Data to Display Exam Physical Exam Vital signs: Temp Pulse Resp BP Pulse Ox 97.9 F 95 H 19 115/72 98 10/06/23 20:25 10/06/23 20:25 10/06/23 20:25 10/06/23 20:25 10/06/23 20:25 Narrative: See physical exam from progress note dated 10/07/2023 [facility] All Active Problems (Updated 10/03/23 @ 17:23 by Kathia Menchaca MD) Status post section (Acute) Teed uterine incision through the contractile portion of the myometrium. Not a candidate for labor or vaginal in the future Prolonged second stage (of labor) (Acute) GBS (group B Streptococcus carrier), +RV culture, currently (Acute) Normal labor (Acute) Large for gestational age fetus affecting management of mother, antepartum (Acute) Gestational diabetes mellitus (GDM) (Acute) AC >99%ile Social History Smoking/Tobacco Use Status: Never Smoking risk assessment performed?: Yes Alcohol Intake: current Housing: house Do you feel safe at home: Yes Do you feel safe in your relationship?: Yes History History 1 Para 0 Hx # Term Pregnancies Multiple births Hx # Pregnancies Ectopic pregnancies AB induced Hx Number of Living Children AB spontaneous Past Pregnancies Del. Date GA/Weeks # Preg Succ Route Wgt Sex Labor Lgth Anesthesia Location Prov Complic Unknown 40 No Yes 8 lb 3 oz Female 20 [facility] other Delivery Date: Last Updated by: Dawna Mcbride, DO 10-hour second stage, fundal uterine incision. Not a candidate for trial of labor DS: Data Vitals/I&O Vitals and I&O: Vital Signs Temperature 97.9 F 10/06/23 20:25 Temperature Source Oral 10/06/23 20:25 Pulse 95 H 10/06/23 20:25 Pulse Rhythm Regular 10/06/23 20:25 Respiratory Rate 19 10/06/23 20:25 Respiratory Depth Normal 10/06/23 20:25 Blood Pressure 115/72 10/06/23 20:25 Blood Pressure Mean 86 10/06/23 20:25 Pulse Oximetry 98 10/06/23 20:25 Oxygen Delivery Method Room Air 10/03/23 07:13 Oxygen Flow Rate 0 10/03/23 07:13 Pain Level 1 10/07/23 08:47 Intake & Output 10/06/23 10/06/23 10/07/23 11:59 23:59 11:59 Other: Urine Color Yellow Yellow Urine Appearance Clear Clear Urine Odor None None Voiding Methods Toilet Toilet
== END 2023-10-07 13:15 | disposition home or self-care (01) | DRG 788 ==
PROVIDERS: Admitting Provider Obstetrics & Gynecology Gynecology; Visit Provider Obstetrics & Gynecology Gynecology
PROC: (CPT 59514; principal; 2023-10-03 22:00)
DX: O99.824 Streptococcus B carrier state complicating childbirth (principal); Z37.0 Single live birth; Z3A.40 40 weeks gestation of pregnancy; O24.414 Gestational diabetes mellitus in pregnancy, insulin controlled; O63.1 Prolonged second stage (of labor); O66.2 Obstructed labor due to unusually large fetus
CPT/HCPCS: 59514; 36415; 85027; 86850; 86900; 86901; 85025; 88307; J0131; J0456; J0665; J0690; J1836; J1885; J2274; J2371; J2405; J3010; J3490

== ENCOUNTER 2023-10-10 14:39 | Observation (INO) | payer MEDICAID, SELFPAY ==
--- NOTE | 2023-10-10 14:43 | HPE_ITS ---
Date of service: 10/10/23 Time of Service: 14:43 Assessment and Plan Assessment and plan (1) Status post section: Status: Acute Assessment and plan: Postop day 6 status post complex section with trans mural extension, prolonged delivery, prolonged labor, prolonged rupture of membranes with positive group B strep, patient declined treatment. (2) Postoperative nausea and vomiting: Status: Acute Assessment and plan: Postoperative nausea and vomiting. Patient appears somewhat fatigued, weak. Will admit for IV hydration, laboratory studies, imaging as indicated. May warrant IV antibiotics, potential surgical consultation. All questions answered. As of note, patient and her are somewhat reluctant to the use of medications. is questioning as to whether she needs to stay in the hospital overnight or may be discharged home after initial evaluation. All questions answered to the best of my ability. History of Present Illness History of Present Illness Chief Complaint: Postop nausea and vomiting N arrative: Patient is a 37-year-old female who is postoperative day #6 status post primary section with transmural extension due to prolonged extraction after 10-hour second stage. She had initially been discharged to home postoperative day #4 ambulating, tolerating regular diet and oral pain medication with stable vital signs. Her called the office today as the patient was having increasing nausea and difficulty in tolerating p.o. She was seen in the office and noted to be somewhat pallorous, fatigued, but alert and oriented. She states that her sleep patterns have been poor between breast- feeding and managing her postoperative condition. She did have an increase in vaginal bleeding upon presentation home which is since tapered off. Initially she had been tolerating oral intake and transition to broths and currently has had little oral intake without nausea. She continues to have bowel movements. She has no increase in her pain. She reports chills but no discrete fever. Temperature was 99 in the office today. In light of the significant complexity of her surgery, and her postoperative condition today, my recommendation is for admission with IV hydration, antiemetics, antipyretics, baseline laboratory studies including CBC, CMP, urinalysis, lactate. Imaging of her abdomen and pelvis may be warranted. We did discuss the possibility of IV antibiotics based on her clinical picture. She and her are somewhat reluctant to have any medication intervention. We did discuss the important nature of this and again the complexity of her surgical procedure, and her high risk for surgical complications. Review of Systems All systems reviewed & are unremarkable except as noted in HPI and below Constitutional Constitutional: Reports body ache(s), Reports chills, Reports fatigue, Reports lethargy and Reports poor appetite Eyes Eyes: Reports system reviewed and no additional complaints, except as documented ENT Ears, Nose, Mouth, and Throat: Reports system reviewed and no additional complaints, except as documented Cardiovascular Cardiovascular: Reports system reviewed and no additional complaints, except as documented, Denies chest pain, Denies rapid heart rate and Denies irregular heart rhythm Respiratory Respiratory: Reports system reviewed and no additional complaints, except as documented, Denies chest congestion and Denies cough Gastrointestinal Gastrointestinal: Reports as per HPI, Denies abdominal pain, Denies melena, Denies change in bowel habits and Denies constipation Musculoskeletal Musculoskeletal: Reports system reviewed and no additional complaints, except as documented Integumentary/Breasts Skin/Breast: Reports system reviewed and no additional complaints, except as documented Neurologic Neurologic: Reports system reviewed and no additional complaints, except as documented Psychiatric Psychiatric: Reports system reviewed and no additional complaints, except as documented Endocrine Endocrine: Reports fatigue PFSH All Active Problems (Updated 10/10/23 @ 14:17 by Dawna Mcbride DO) Postoperative nausea and vomiting (Acute) Status post section (Acute) Teed uterine incision through the contractile portion of the myometrium. Not a candidate for labor or vaginal in the future Prolonged second stage (of labor) (Acute) GBS (group B Streptococcus carrier), +RV culture, currently (Acute) Gestational diabetes mellitus (GDM) (Acute) AC >99%ile Social History Smoking/Tobacco Use Status: Never Smoking risk assessment performed?: Yes Alcohol Intake: current Housing: house Do you feel safe at home: Yes Do you feel safe in your relationship?: Yes History History 2 1 Para 1 Hx # Term Pregnancies Multiple births Hx # Pregnancies Ectopic pregnancies AB induced Hx Number of Living Children AB spontaneous Past Pregnancies Del. Date GA/Weeks # Preg Succ Route Wgt Sex Labor Lgth Anesth esia Location Prov Complic Unknown 40 No Yes 8 lb 3 oz Female 20 [facility] [place] other Delivery Date: Last Updated by: Dawna Mcbride DO 10-hour second stage, fundal uterine incision. Not a candidate for trial of labor Meds Allergies and Home Medications Allergies Allergy/AdvReac Type Severity Reaction Status Date / Time No Known Allergies Allergy Verified 10/10/23 13:54 Home Medications Medication Instructions Recorded Confirmed Type full well PO 09/13/23 09/28/23 History blood-glucose meter (OneTouch #1 ea 09/29/23 09/29/23 Rx Ultra2 Meter) lancets 33 gauge (OneTouch Delica #100 ea 09/29/23 09/29/23 Rx Plus Lancet) docusate sodium 100 mg capsule 100 mg PO BID #60 caps 10/07/23 Rx (Colace) ibuprofen 800 mg tablet 800 mg PO Q8H PRN #90 tabs 10/07/23 Rx Exam Const General: cooperative, well developed, well groomed and ill appearing Nutritional Appearance: average body habitus Orientation: alert, awake and oriented x3 HENMT Head: normal to inspection Eyes General: appearance normal, both eyes and all related structures Resp Effort & Inspection: normal respiratory effort, no audible wheezes and no cough Auscultation: clear to auscultation bilaterally Cardio Rate: regular rate Rhythm: regular rhythm GI Inspection: normal to inspection, no abdominal wall ecchymosis, non-distended and incision (Dressed, Mepilex in place) Palpation: soft, not firm and no guarding Auscultation: normal bowel sounds Skin General skin exam: no rashes or lesions noted Extrem General: normal to inspection, no calf tenderness and edema (Bilateral lower extremity, 1+) Results Labs 10/10/23 14:42 10/10/23 14:42 Time Spent Time spent with Patient: 55-74 minutes Time was spent: preparing to see the patient(eg.review tests), obtaining and/or reviewing separately otained hiistory, ordering medications,tests, procedures, referring, communicating with other health urgent care physician assistant, indepentently interpreting results and counseling the patient
[2023-10-10 14:49] VITALS: BP 126/76; PULSE 82; RESP 17; TEMP 37.2; O2SAT 98
[2023-10-10 15:00] LABS: Lactate 0.7 mmol/L (0.6-1.4)
[2023-10-10 15:01] LABS: Abs Immature Grans 0.22 10^3/uL (0.0-0.06); Absolute Monocyte Count 0.55 10^3/uL (0.1-0.8); Basophils % 0.4 %; Eosinophils % 0.4 %; HCT 29.2 % (36.0-46.0); HGB 9.7 g/dL (11.2-15.7); Immature Grans % 1.9 %; Lymphocytes % 12.6 %; MCH 30.9 pg (27.0-33.0); MCHC 33.2 % (32.0-36.0); MCV 93 fL (80-95); MPV 9.1 fL (8.0-11.0); Monocytes % 4.8 %; Neutrophils % 79.9 %; Platelet Count 298 10^3/uL (130-400); RBC 3.14 10^6/uL (3.93-5.22); RDW 13.3 % (11.7-14.6); RDW-SD 45.6 fL; WBC 11.39 10^3/uL (4.4-10.8)
[2023-10-10 15:07] LABS: Absolute Basophil Count 0.05 10^3/uL (0.0-0.2); Absolute Eosinophil Count 0.05 10^3/uL (0.0-0.7); Absolute Lymphocyte Count 1.44 10^3/uL (1.2-3.4)
[2023-10-10 15:20] LABS: ALT 23 U/L (14-59); AST 14 U/L (15-37); Alkaline Phosphatase 116 U/L (46-116); Anion Gap 8.4 mmol/L (3-11); BUN 8 mg/dL (7-18); Bilirubin, Total 0.2 mg/dL (0.2-1.0); CO2 24.6 mmol/L (21.0-32.0); CREATININE 0.7 mg/dL (0.55-1.02); Calcium 8.5 mg/dL (8.5-10.1); Chloride 107 mmol/L (98-107); Estimated GFR 114.16 (mL/min/1.73m2); Glucose 105 mg/dL (74-106); Potassium 4.3 mmol/L (3.5-5.1); Sodium 140 mmol/L (136-145)
[2023-10-10] MEDS: Lactated Ringers 500 ML IV (15:56)
[2023-10-10] MEDS: Metoclopramide 10 MG/2 ML VIAL IVP ×2 (17:30→21:56)
[2023-10-10] MEDS: Normal Saline Flush 10 ML SYR IVP (17:31)
[2023-10-10 17:36] VITALS: BP 141/88; PULSE 80; RESP 17; TEMP 37.9; O2SAT 99
--- NOTE | 2023-10-10 17:54 | PGE_ITS ---
Date of Service Date of service: 10/10/23 Time of Service: 17:54 Assessment and Plan Assessment and plan (1) Status post section: Status: Acute Assessment and plan: Postoperative nausea vomiting, no low-grade temperature. Slight elevation in WBC. Patient resistant to IV antibiotics. Will continue to monitor closely clinically, repeat CBC. If, persistent elevation in temperature, elevation in WBC, would strongly encourage IV antibiotics. C. difficile will be performed. (2) Postoperative nausea and vomiting: Status: Acute Assessment and plan: Patient accepted Reglan for nausea Subjective Subjective Interval history since last seen: Patient seen and examined and laboratory studies reviewed. White blood cell count slightly decreased from her previous admission. Hemoglobin slightly elevated from previous to 9.7. Tmax is current at 100.3. Patient initially felt somewhat better after IV hydration with fluid bolus, and now feels poorly, most likely related to her temperature elevation. We do lengthy conversation regarding repeat laboratory studies, IV hydration, rest, breast-feeding. Will recheck CBC for direction and trending, as patient is reluctant to resume antibiotic therapy at this point. Will continue to monitor closely. Strongly encouraged patient's continued presence in the hospital despite patient and her 's desire to go home and rest at home. Exam Const General: cooperative and ill appearing Nutritional Appearance: average body habitus Resp Effort & Inspection: normal respiratory effort, no audible wheezes and no cough Cardio Rate: regular rate Rhythm: regular rhythm Objective Last Vital Signs Temp 99 F 10/10/23 14:49 Pulse 82 10/10/23 14:49 Resp 17 10/10/23 14:49 BP 126/76 10/10/23 14:49 Pulse Ox 98 10/10/23 14:49 Laboratory Results - last 24 hr 10/10/23 14:53 WBC 11.39 H RBC 3.14 L Hgb 9.7 L Hct 29.2 L MCV 93 MCH 30.9 MCHC 33.2 RDW 13.3 Plt Count 298 MPV 9.1 Immature Gran % 1.9 Neutrophils % 79.9 Lymphocytes % 12.6 Monocytes % 4.8 Eosinophils % 0.4 Basophils % 0.4 Nucleated RBC % 0.0 Absolute Neutrophils 9.10 H Absolute Lymphocytes 1.44 Absolute Monocytes 0.55 Absolute Eosinophils 0.05 Absolute Basophils 0.05 VBG Lactate 0.7 Sodium 140 Potassium 4.3 Chloride 107 Carbon Dioxide 24.6 Anion Gap 8.4 BUN 8 Creatinine 0.7 Est GFR (CKD-EPI 2020) 114.16 Glucose 105 Calcium 8.5 Total Bilirubin 0.2 AST 14 L ALT 23 Alkaline Phosphatase 116 Total Protein 6.0 L Albumin 2.0 L Time Spent with Patient Time Spent with Patient: 25-34 minutes Time was spent: preparing to see the patient(eg.review tests), obtaining and/or reviewing separately otained hiistory, ordering medications,tests, procedures, referring, communicating with other health childcare center administrator, indepentently interpreting results and counseling the patient
[2023-10-10] MEDS: ACETAMINOPHEN 1,000 MG/100 ML BTL 200 MG (18:50)
[2023-10-10] MEDS: Lactated Ringers 1,000 ML 200 ML IV (18:59)
[2023-10-10 19:10] LABS: Bilirubin Negative (Negative); Blood Large (Negative); Clarity Sl Cloudy (Clear); Glucose Negative (Negative); Ketones Negative (Negative); Leukocyte Esterase Large (Negative); Nitrite Negative (Negative); Specific Gravity 1.015 (1.005-1.025); Urobilinogen 0.2 mg/dL (Up to 0.2)
[2023-10-10 19:38] LABS: WBC >50 HPF (0-5)
[2023-10-10 19:39] LABS: Bacteria Few HPF (Negative); C & S Indicated? Yes; Casts Negative LPF (Negative); Crystals Negative HPF (Negative); Epithelial Cells Few HPF (Negative); Mucus Trace (Negative)
[2023-10-10 21:44] VITALS: TEMP 37.6
--- NOTE | 2023-10-10 21:50 | PGE_ITS ---
Date of Service Date of service: 10/10/23 Time of Service: 21:50 Assessment and Plan Assessment and plan (1) Status post section: Status: Acute Assessment and plan: Patient will have IV antibiotics with cefoxitin. Antiemetics, careful monitoring of vital signs, accurate I's and O's. Continue IV hydration. (2) Postoperative nausea and vomiting: Status: Acute (3) GBS (group B Streptococcus carrier), +RV culture, currently : Status: Acute Subjective Subjective Interval history since last seen: Patient seen and examined this evening. Low-grade temps to 100.4. Still feeling somewhat nauseated. Epigastric discomfort with no particular pain. Mepilex dressing removed and replaced. Incision is clean, dry, intact, healing well with no evidence of infection, hematoma, or wound dehiscence. Discussed with patient and her the likely source of infection being endometrium or endometritis due to long rupture of membranes, group B strep positivity, and surgery. Will begin antibiotics with cefoxitin 2 g IV every 6 hours for both aerobic and anaerobic coverage. Recheck CBC as scheduled at 10 PM and 6 AM. Accurate I's and O's. Exam Const General: cooperative and ill appearing Nutritional Appearance: average body habitus Neck Neck: normal visual inspection Resp Effort & Inspection: normal respiratory effort, no audible wheezes and no cough Cardio Rate: regular rate Rhythm: regular rhythm GI Inspection: normal to inspection, non-distended and incision (Clean, dry, intact, no ecchymosis or erythema) Palpation: soft, not firm and no guarding Skin General skin exam: no rashes or lesions noted Neuro General: patient alert and patient oriented x3 Extrem General: normal to inspection, no clubbing, cyanosis or edema and no calf tenderness Objective Last Vital Signs Temp 99.7 F H 10/10/23 21:44 Pulse 80 10/10/23 17:36 Resp 17 10/10/23 17:36 BP 141/88 H 10/10/23 17:36 Pulse Ox 99 10/10/23 17:36 Laboratory Results - last 24 hr 10/10/23 10/10/23 14:53 17:55 WBC 11.39 H RBC 3.14 L Hgb 9.7 L Hct 29.2 L MCV 93 MCH 30.9 MCHC 33.2 RDW 13.3 Plt Count 298 MPV 9.1 Immature Gran % 1.9 Neutrophils % 79.9 Lymphocytes % 12.6 Monocytes % 4.8 Eosinophils % 0.4 Basophils % 0.4 Nucleated RBC % 0.0 Absolute Neutrophils 9.10 H Absolute Lymphocytes 1.44 Absolute Monocytes 0.55 Absolute Eosinophils 0.05 Absolute Basophils 0.05 VBG Lactate 0.7 Sodium 140 Potassium 4.3 Chloride 107 Carbon Dioxide 24.6 Anion Gap 8.4 BUN 8 Creatinine 0.7 Est GFR (CKD-EPI 2020) 114.16 Glucose 105 Calcium 8.5 Total Bilirubin 0.2 AST 14 L ALT 23 Alkaline Phosphatase 116 Total Protein 6.0 L Albumin 2.0 L Urine Color Yellow Urine Clarity Sl Cloudy Urine pH 7.0 Ur Specific [place] 1.015 Urine Protein 30 H Urine Ketones Negative Urine Blood Large H Urine Nitrite Negative Urine Bilirubin Negative Urine Urobilinogen 0.2 Ur Leukocyte Esterase Large H Urine RBC 5-10 H Urine WBC >50 H Ur Epithelial Cells Few Urine Crystals Negative Urine Bacteria Few Urine Casts Negative Urine Mucus Trace Ur Culture Indicated? Yes Urine Glucose Negative Time Spent with Patient Time Spent with Patient: 25-34 minutes Time was spent: preparing to see the patient(eg.review tests), obtaining and/or reviewing separately otained hiistory, ordering medications,tests, procedures, referring, communicating with other health tree care foreman, counseling the patient and care coordination
[2023-10-10 22:14] VITALS: BP 136/76; PULSE 88; RESP 16
[2023-10-10 22:42] LABS: Abs Immature Grans 0.23 10^3/uL (0.0-0.06); Absolute Basophil Count 0.04 10^3/uL (0.0-0.2); Absolute Eosinophil Count 0.06 10^3/uL (0.0-0.7); Absolute Monocyte Count 0.75 10^3/uL (0.1-0.8); Basophils % 0.3 %; Eosinophils % 0.5 %; HCT 27.5 % (36.0-46.0); Immature Grans % 1.9 %; Lactate 0.6 mmol/L (0.6-1.4); Lymphocytes % 14.6 %; MCH 30.2 pg (27.0-33.0); MCHC 32.7 % (32.0-36.0); MCV 92 fL (80-95); MPV 9.1 fL (8.0-11.0); Monocytes % 6.1 %; Neutrophils % 76.6 %; Platelet Count 300 10^3/uL (130-400); RBC 2.98 10^6/uL (3.93-5.22); RDW 13.2 % (11.7-14.6); RDW-SD 45.2 fL
[2023-10-10 22:44] LABS: Absolute Neutrophil Count 9.42 10^3/uL (1.2-6.7)
[2023-10-10] MEDS: cefOXitin 2 GM in Normal Saline 50 ML IV (22:55)
[2023-10-11] VITALS (7 sets, daily range): BP systolic 101–136; BP diastolic 59–85; PULSE 63–84; RESP 16–20; TEMP 36.6–37.1; O2SAT 97–99
[2023-10-11] MEDS: Lactated Ringers 1,000 ML 200 ML IV (02:00)
[2023-10-11] MEDS: Ondansetron 4 MG/2 ML VIAL IVP ×2 (02:39→16:14)
[2023-10-11] MEDS: ACETAMINOPHEN 1,000 MG/100 ML BTL 400 MG IVPB ×2 (03:53→10:19)
[2023-10-11] MEDS: cefOXitin 2 GM in Normal Saline 50 ML IV ×3 (05:58→18:05)
[2023-10-11 07:56] LABS: Abs Immature Grans 0.14 10^3/uL (0.0-0.06); Absolute Basophil Count 0.04 10^3/uL (0.0-0.2); Absolute Eosinophil Count 0.04 10^3/uL (0.0-0.7); Basophils % 0.3 %; Eosinophils % 0.3 %; Immature Grans % 1.1 %; Lymphocytes % 13.8 %; MCH 30.1 pg (27.0-33.0); MCHC 32.2 % (32.0-36.0); MCV 93 fL (80-95); MPV 9.6 fL (8.0-11.0); Monocytes % 5.7 %; Neutrophils % 78.8 %; Platelet Count 306 10^3/uL (130-400); RBC 2.89 10^6/uL (3.93-5.22); RDW 13.3 % (11.7-14.6); RDW-SD 45.9 fL; WBC 12.33 10^3/uL (4.4-10.8)
[2023-10-11 07:59] LABS: Absolute Neutrophil Count 9.72 10^3/uL (1.2-6.7); HGB 8.7 g/dL (11.2-15.7)
--- NOTE | 2023-10-11 10:07 | W.PM.PROGNOT ---
Date of Service Date of service: 10/11/23 Time of Service: 10:07 Assessment and Plan Assessment and plan (1) Status post section: Status: Acute Assessment and plan: Patient is day #7 stent this post section for prolonged second stage, labor arrest. She Natali presented with postoperative nausea and vomiting, low-grade fever, elevated white blood cell count. My clinical impression is that of an endometritis. She has excepted IV antibiotics which we will continue for a minimum of 24 hours afebrile. She will continue to have antiemetics, and slowly advance her diet. Her abdomen is soft and nontender. I do not think this is an intra-abdominal bowel issue, more likely endometritis. Will continue to monitor closely. Rest, hydration, slowly advance diet. Patient verbalizes understanding of plan and is accepting of this currently (2) Postoperative nausea and vomiting: Status: Acute Subjective Subjective Interval history since last seen: Patient seen and examined this morning. Overall some improvement. Her Tmax was 100.4. She agreed to IV antibiotics and is on cefoxitin, 2 g IV every 6 hours. She continues to have some nausea and is managing both with toast and crackers, and antiemetics. We discussed her care plan which would be a minimum of 24 hours of IV antibiotics as long as she remains afebrile with conversion to oral antibiotics. CBC will be repeated in the morning. This morning CBC shows a persistently low elevated WBC count with a left shift. Hemoglobin has some delusional drift to 8.7. Her vital signs are stable. She is continuing to breast-feed without significant difficulty. Exam Const General: cooperative, not in acute distress and other (Tired) Nutritional Appearance: average body habitus Eyes General: appearance normal, both eyes and all related structures Resp Effort & Inspection: normal respiratory effort, no audible wheezes and no cough Cardio Rate: regular rate Rhythm: regular rhythm GI Inspection: normal to inspection, non-distended and incision Palpation: soft, not firm and no guarding Skin General skin exam: no rashes or lesions noted Extrem General: normal to inspection and no clubbing, cyanosis or edema Objective Last Vital Signs Temp 97.9 F 10/11/23 08:00 Pulse 77 10/11/23 08:00 Resp 18 10/11/23 08:00 BP 101/67 10/11/23 08:00 Pulse Ox 98 10/11/23 08:00 Laboratory Results - last 24 hr 10/10/23 10/10/23 10/10/23 14:53 17:42 17:55 WBC 11.39 H RBC 3.14 L Hgb 9.7 L Hct 29.2 L MCV 93 MCH 30.9 MCHC 33.2 RDW 13.3 Plt Count 298 MPV 9.1 Immature Gran % 1.9 Neutrophils % 79.9 Lymphocytes % 12.6 Monocytes % 4.8 Eosinophils % 0.4 Basophils % 0.4 Nucleated RBC % 0.0 Absolute Neutrophils 9.10 H Absolute Lymphocytes 1.44 Absolute Monocytes 0.55 Absolute Eosinophils 0.05 Absolute Basophils 0.05 VBG Lactate 0.7 Cancelled Sodium 140 Potassium 4.3 Chloride 107 Carbon Dioxide 24.6 Anion Gap 8.4 BUN 8 Creatinine 0.7 Est GFR (CKD-EPI 2020) 114.16 Glucose 105 Calcium 8.5 Total Bilirubin 0.2 AST 14 L ALT 23 Alkaline Phosphatase 116 Total Protein 6.0 L Albumin 2.0 L Urine Color Yellow Urine Clarity Sl Cloudy Urine pH 7.0 Ur Specific [place] 1.015 Urine Protein 30 H Urine Ketones Negative Urine Blood Large H Urine Nitrite Negative Urine Bilirubin Negative Urine Urobilinogen 0.2 Ur Leukocyte Esterase Large H Urine RBC 5-10 H Urine WBC >50 H Ur Epithelial Cells Few Urine Crystals Negative Urine Bacteria Few Urine Casts Negative Urine Mucus Trace Ur Culture Indicated? Yes Urine Glucose Negative Stl C.difficile Tox PCR 10/10/23 10/11/23 10/11/23 22:32 03:57 06:03 WBC 12.30 H 12.33 H RBC 2.98 L 2.89 L Hgb 9.0 L 8.7 L Hct 27.5 L 27.0 L MCV 92 93 MCH 30.2 30.1 MCHC 32.7 32.2 RDW 13.2 13.3 Plt Count 300 306 MPV 9.1 9.6 Immature Gran % 1.9 1.1 Neutrophils % 76.6 78.8 Lymphocytes % 14.6 13.8 Monocytes % 6.1 5.7 Eosinophils % 0.5 0.3 Basophils % 0.3 0.3 Nucleated RBC % 0.0 0.0 Absolute Neutrophils 9.42 H 9.72 H Absolute Lymphocytes 1.80 1.70 Absolute Monocytes 0.75 0.70 Absolute Eosinophils 0.06 0.04 Absolute Basophils 0.04 0.04 VBG Lactate 0.6 Sodium Potassium Chloride Carbon Dioxide Anion Gap BUN Creatinine Est GFR (CKD-EPI 2020) Glucose Calcium Total Bilirubin AST ALT Alkaline Phosphatase Total Protein Albumin Urine Color Urine Clarity Urine pH Ur Specific [place] Urine Protein Urine Ketones Urine Blood Urine Nitrite Urine Bilirubin Urine Urobilinogen Ur Leukocyte Esterase Urine RBC Urine WBC Ur Epithelial Cells Urine Crystals Urine Bacteria Urine Casts Urine Mucus Ur Culture Indicated? Urine Glucose Stl C.difficile Tox PCR Cancelled Time Spent with Patient Time Spent with Patient: 35-49 minutes Time was spent: preparing to see the patient(eg.review tests), obtaining and/or reviewing separately otained hiistory, ordering medications,tests, procedures, referring, communicating with other health date night caregiver, indepentently interpreting results, counseling the patient and care coordination
[2023-10-11] MEDS: Lactated Ringers 1,000 ML 125 ML IV ×2 (11:21→21:15)
[2023-10-11] MEDS: Acetaminophen 500 MG TAB 1000 MG PO ×2 (16:18→21:52)
--- NOTE | 2023-10-11 17:39 | W.PM.PROGNOT ---
Date of Service Date of service: 10/11/23 Time of Service: 17:15 Assessment and Plan Assessment and plan (1) Postoperative nausea and vomiting: Status: Acute Assessment and plan: Pt sxms are somewhat improved on antiemetics though she is still not taking in much liquids. No obvious e/o ileus at this point. Uncertain possible source of infections given slightly elevated WBC and low grade fever. Will be on Abx for 24hrs at midnight. Will stop abx then and re-evaluate in the am. Pt and partner are aware they will not be leaving before tomorrow at the very earliest but that we really need to wait and see how she does, making sure she is able to keep food/drink down and that there is no evidence of continued infection. CBC ordered for the am. Subjective Subjective Interval history since last seen: Pt reports still feeling very tired. She says the medication is working to help her nausea but she is still not able to keep much liquids down. She says she has vomited twice today. She has not had a BM since leaving a small stool sample yesterday. She is uncertain if she is passing any gas. She denies significant abdominal or pelvic pain. She has slightly more pain on the right side of her incision where it hurts to lay on that side but it feels a little more superficial, not like deeper pain. She has minimal lochia. She has been using only PO tylenol. She is nursing her baby with slight difficulty due to discomfort when the baby kicks her belly. She is trying side lying. Exam Narrative Exam Narrative: Pt appears tired but alert and awake when conversing. Const General: cooperative, healthy appearing and no acute distress [facility] Head: normocephalic and atraumatic Ears: hearing grossly normal bilaterally Resp Effort & Inspection: normal respiratory effort and able to speak in complete sentences GI Other: +bowel sounds in all 4 quadrants. Mild tenderness to gentle palpation throughout abdomen but no distinct area of tenderness. Dressings clean and dry. Neuro General: patient alert and patient awake Psych Appearance: grossly normal Mental Status: mental status grossly normal Speech and Movement: speech and movement normal Affect: normal affect Attitude: cooperative Thought Process: normal Thought Content: normal Objective Last Vital Signs Temp 98.6 F 10/11/23 16:17 Pulse 63 10/11/23 16:17 Resp 20 10/11/23 16:17 BP 135/85 05/29/24 16:17 Pulse Ox 97 10/11/23 16:17 Laboratory Results - last 24 hr 10/10/23 10/10/23 10/10/23 17:42 17:55 22:32 WBC 12.30 H RBC 2.98 L Hgb 9.0 L Hct 27.5 L MCV 92 MCH 30.2 MCHC 32.7 RDW 13.2 Plt Count 300 MPV 9.1 Immature Gran % 1.9 Neutrophils % 76.6 Lymphocytes % 14.6 Monocytes % 6.1 Eosinophils % 0.5 Basophils % 0.3 Nucleated RBC % 0.0 Absolute Neutrophils 9.42 H Absolute Lymphocytes 1.80 Absolute Monocytes 0.75 Absolute Eosinophils 0.06 Absolute Basophils 0.04 VBG Lactate Cancelled 0.6 Urine Color Yellow Urine Clarity Sl Cloudy Urine pH 7.0 Ur Specific [place] 1.015 Urine Protein 30 H Urine Ketones Negative Urine Blood Large H Urine Nitrite Negative Urine Bilirubin Negative Urine Urobilinogen 0.2 Ur Leukocyte Esterase Large H Urine RBC 5-10 H Urine WBC >50 H Ur Epithelial Cells Few Urine Crystals Negative Urine Bacteria Few Urine Casts Negative Urine Mucus Trace Ur Culture Indicated? Yes Urine Glucose Negative Stl C.difficile Tox PCR 10/11/23 10/11/23 03:57 06:03 WBC 12.33 H RBC 2.89 L Hgb 8.7 L Hct 27.0 L MCV 93 MCH 30.1 MCHC 32.2 RDW 13.3 Plt Count 306 MPV 9.6 Immature Gran % 1.1 Neutrophils % 78.8 Lymphocytes % 13.8 Monocytes % 5.7 Eosinophils % 0.3 Basophils % 0.3 Nucleated RBC % 0.0 Absolute Neutrophils 9.72 H Absolute Lymphocytes 1.70 Absolute Monocytes 0.70 Absolute Eosinophils 0.04 Absolute Basophils 0.04 VBG Lactate Urine Color Urine Clarity Urine pH Ur Specific [place] Urine Protein Urine Ketones Urine Blood Urine Nitrite Urine Bilirubin Urine Urobilinogen Ur Leukocyte Esterase Urine RBC Urine WBC Ur Epithelial Cells Urine Crystals Urine Bacteria Urine Casts Urine Mucus Ur Culture Indicated? Urine Glucose Stl C.difficile Tox PCR Cancelled Time Spent with Patient Time Spent with Patient: <25 minutes Time was spent: preparing to see the patient(eg.review tests), obtaining and/or reviewing separately [facility] hiistory, ordering medications,tests, procedures and counseling the patient
[2023-10-12] MEDS: cefOXitin 2 GM in Normal Saline 50 ML IV (00:05)
[2023-10-12 02:24] VITALS: BP 122/93; PULSE 72; RESP 17; TEMP 36.6; O2SAT 99
[2023-10-12] MEDS: Lactated Ringers 1,000 ML 125 ML IV (05:22)
--- NOTE | 2023-10-12 07:02 | NUR.NOTE ---
Nursing Note:Education provided about cosleeping with baby. parents continued to cosleep with baby throughout the night.
[2023-10-12 08:00] LABS: Abs Immature Grans 0.34 10^3/uL (0.0-0.06); Absolute Basophil Count 0.06 10^3/uL (0.0-0.2); Absolute Eosinophil Count 0.17 10^3/uL (0.0-0.7); Absolute Lymphocyte Count 1.91 10^3/uL (1.2-3.4); Absolute Monocyte Count 0.57 10^3/uL (0.1-0.8); Absolute Neutrophil Count 8.86 10^3/uL (1.2-6.7); Basophils % 0.5 %; Eosinophils % 1.4 %; HCT 27.6 % (36.0-46.0); Immature Grans % 2.9 %; MCH 30.2 pg (27.0-33.0); MCHC 32.6 % (32.0-36.0); MCV 93 fL (80-95); MPV 9.5 fL (8.0-11.0); Monocytes % 4.8 %; Neutrophils % 74.4 %; Platelet Count 323 10^3/uL (130-400); RBC 2.98 10^6/uL (3.93-5.22); RDW 13.2 % (11.7-14.6); RDW-SD 45.1 fL; WBC 11.91 10^3/uL (4.4-10.8)
--- NOTE | 2023-10-12 08:21 | PGE_ITS ---
Date of Service Date of service: 10/12/23 Time of Service: 08:21 Assessment and Plan Assessment and plan (1) Status post section: Status: Acute Assessment and plan: Overall improvement and afebrile. White count improving. Able to tolerate oral intake. Will transition to oral antibiotics. Monitor through the day. Anticipate discharge home today with close interval follow-up. All questions answered. (2) Postoperative nausea and vomiting: Status: Acute Subjective Subjective Interval history since last seen: Patient seen and examined this morning. Had a better night, resting, sleeping, breast-feeding without difficulty. Nausea is improved. Hoping to tolerate oral solid food today. Breakfast was ordered. Afebrile x 24 hours. Last dose of IV antibiotics at midnight. Will transition to p.o. Augmentin twice daily for the course of the next 10 days. Overall, her status is improved. Hemoglobin is stable,, WBC BC stable to improving. Clinically marked improvement in her status. Would anticipate if tolerating solid food, and oral antibiotics for discharge home later today. All questions were answered. Exam Narrative Exam Narrative: Patient is seen this morning looking much improved. Well rested, joyful this morning. [facility] Head: normal to inspection Resp Effort & Inspection: normal respiratory effort, no audible wheezes and no cough Cardio Rate: regular rate Rhythm: regular rhythm GI Palpation: soft, not firm and no guarding Skin General skin exam: no rashes or lesions noted Extrem General: no clubbing, cyanosis or edema Psych Appearance: grossly normal Mental Status: mental status grossly normal Speech and Movement: speech and movement normal Mood: congruent mood Affect: normal affect Attitude: cooperative Objective Last Vital Signs Temp 97.9 F 10/12/23 02:24 Pulse 72 10/12/23 02:24 Resp 17 10/12/23 02:24 BP 122/93 H 10/12/23 02:24 Pulse Ox 99 10/12/23 02:24 Laboratory Results - last 24 hr 10/12/23 07:38 WBC 11.91 H RBC 2.98 L Hgb 9.0 L Hct 27.6 L MCV 93 MCH 30.2 MCHC 32.6 RDW 13.2 Plt Count 323 MPV 9.5 Immature Gran % 2.9 Neutrophils % 74.4 Lymphocytes % 16.0 Monocytes % 4.8 Eosinophils % 1.4 Basophils % 0.5 Nucleated RBC % 0.0 Absolute Neutrophils 8.86 H Absolute Lymphocytes 1.91 Absolute Monocytes 0.57 Absolute Eosinophils 0.17 Absolute Basophils 0.06 Time Spent with Patient Time Spent with Patient: 25-34 minutes Time was spent: preparing to see the patient(eg.review tests), obtaining and/or reviewing separately otained hiistory, ordering medications,tests, procedures, referring, communicating with other health child day care provider, indepentently interpreting results and counseling the patient
[2023-10-12 08:59] VITALS: BP 128/83; PULSE 61; RESP 20; TEMP 37.1; O2SAT 98
[2023-10-12] MEDS: Amoxicillin 875/Clav. 125 TAB PO ×2 (09:42→21:16)
[2023-10-12 12:31] VITALS: BP 130/76; PULSE 60; RESP 18; TEMP 36.9; O2SAT 98
[2023-10-12 16:16] VITALS: BP 119/75; PULSE 66; RESP 20; TEMP 36.9; O2SAT 98
--- NOTE | 2023-10-12 16:18 | NUR.NOTE ---
Nursing Note: Mom is currently co-sleeping with infant at this time. is currently not a patient on the unit. RN addressed safety concerns with patient, patient is aware of the safety risks and would like to contiue co-sleeping.
--- NOTE | 2023-10-12 17:54 | PGE_ITS ---
Date of Service Date of service: 10/12/23 Time of Service: 17:54 Assessment and Plan Assessment and plan (1) Status post section: Status: Acute Assessment and plan: Postop day #8 status post complex section. [place] this is for endometritis which has improved. She is afebrile, white blood cell count is stable to decreasing. She does have slow return of gut function. Will add Pepcid either orally, or IV as patient preference. She does have antiemetics ordered. Will repeat laboratory studies in the morning including CBC and a CMP. Continue to increase activity, ambulate as appropriate. Continue breast- feeding. (2) Postoperative nausea and vomiting: Status: Acute Subjective Subjective Interval history since last seen: Patient seen and examined this evening. Overall doing reasonably well. Pain is minimal. She did have an episode of emesis after eating chicken broth, though she does not have consistent nausea or intractable vomiting. She has good active bowel sounds. Last bowel movement was yesterday. She is actively working on breast-feeding, and producing reasonable amounts of milk. She is voiding without difficulty and has been afebrile. We had a lengthy conversation today regarding slow and steady progress and continued watchful waiting to evaluate for any signs of worsening of her condition or deterioration. She has been transitioned from parenteral antibiotics to oral antibiotics. She is due for a second dose of Augmentin. We discussed need for antiemetics versus gut protection. She has used Pepcid AC in the past chewable which has worked well for her we will prescribe this again, with a backup IV if necessary. She also has antiemetics written. Will repeat laboratory studies including a CBC and add a CMP in the morning. Care for watchful observation with the anticipation that she will continue to have slow and steady progress. We also discussed her emotional state of being. She is feeling reasonably well, though somewhat disconnected and somewhat restful and that she is not able to fully enjoy these first days of her 's life without guilt in healing and recovery. Support was given. Exam Const Nutritional Appearance: average body habitus Orientation: alert and awake [facility] Head: normal to inspection Eyes General: appearance normal, both eyes and all related structures Resp Effort & Inspection: normal respiratory effort and no cough Cardio Rate: regular rate Rhythm: regular rhythm GI Inspection: normal to inspection, non-distended and incision (Dressed) Palpation: soft, not firm and no guarding Percussion: normal to percussion Auscultation: normal bowel sounds Skin General skin exam: no rashes or lesions noted Extrem General: normal to inspection, no pedal edema and no calf tenderness Psych Mental Status: mental status grossly normal Mood: congruent mood Attitude: cooperative Thought Process: normal Objective Last Vital Signs Temp 98.4 F 10/12/23 16:16 Pulse 66 10/12/23 16:16 Resp 20 10/12/23 16:16 BP 119/75 10/12/23 16:16 Pulse Ox 98 10/12/23 16:16 Laboratory Results - last 24 hr 10/12/23 07:38 WBC 11.91 H RBC 2.98 L Hgb 9.0 L Hct 27.6 L MCV 93 MCH 30.2 MCHC 32.6 RDW 13.2 Plt Count 323 MPV 9.5 Immature Gran % 2.9 Neutrophils % 74.4 Lymphocytes % 16.0 Monocytes % 4.8 Eosinophils % 1.4 Basophils % 0.5 Nucleated RBC % 0.0 Absolute Neutrophils 8.86 H Absolute Lymphocytes 1.91 Absolute Monocytes 0.57 Absolute Eosinophils 0.17 Absolute Basophils 0.06 Time Spent with Patient Time Spent with Patient: 35-49 minutes Time was spent: preparing to see the patient(eg.review tests), obtaining and/or reviewing separately otained hiistory, ordering medications,tests, procedures, referring, communicating with other health home care music therapist, indepentently interpreting results and counseling the patient
[2023-10-12 21:00] VITALS: BP 121/67; PULSE 83; RESP 18; TEMP 36.8
[2023-10-12] MEDS: Famotidine 20 MG TAB PO (21:16)
[2023-10-13 02:05] VITALS: BP 131/82; PULSE 85; RESP 18; TEMP 36.9
[2023-10-13 08:12] LABS: Absolute Eosinophil Count 0.18 10^3/uL (0.0-0.7); Basophils % 0.9 %; Eosinophils % 1.5 %; HCT 29.4 % (36.0-46.0); HGB 9.9 g/dL (11.2-15.7); Immature Grans % 2.6 %; Lymphocytes % 16.2 %; MCH 30.6 pg (27.0-33.0); MCHC 33.7 % (32.0-36.0); MCV 91 fL (80-95); MPV 9.4 fL (8.0-11.0); Monocytes % 4.4 %; Neutrophils % 74.4 %; Platelet Count 390 10^3/uL (130-400); RBC 3.24 10^6/uL (3.93-5.22); RDW-SD 43.2 fL; WBC 11.72 10^3/uL (4.4-10.8)
[2023-10-13 08:21] LABS: Absolute Basophil Count 0.11 10^3/uL (0.0-0.2); Absolute Monocyte Count 0.52 10^3/uL (0.1-0.8); Absolute Neutrophil Count 8.72 10^3/uL (1.2-6.7)
[2023-10-13 08:26] LABS: ALT 28 U/L (14-59); AST 21 U/L (15-37); Alkaline Phosphatase 111 U/L (46-116); BUN 8 mg/dL (7-18); Bilirubin, Total 0.3 mg/dL (0.2-1.0); CREATININE 0.6 mg/dL (0.55-1.02); Calcium 8.6 mg/dL (8.5-10.1); Chloride 105 mmol/L (98-107); Estimated GFR 118.49 (mL/min/1.73m2); Glucose 89 mg/dL (74-106); Potassium 3.8 mmol/L (3.5-5.1); Sodium 140 mmol/L (136-145); Total Protein 5.8 g/dL (6.4-8.2)
[2023-10-13] MEDS: Amoxicillin 875/Clav. 125 TAB PO (08:28)
[2023-10-13] MEDS: Famotidine 20 MG TAB PO (08:29)
[2023-10-13 08:39] VITALS: TEMP 36.7
[2023-10-13] MEDS: Normal Saline Flush 10 ML SYR IVP (08:39)
--- NOTE | 2023-10-13 08:42 | W.PM.OBPNV1 ---
Date of service: 10/13/23 Time of Service: 08:30 Assessment and Plan Assessment and plan (1) Postoperative nausea and vomiting: Assessment and plan: Pt treated for suspected endometritis with significantly improved sxms on HD#3. She was discharged with augmentin to finish a 10 day course and we reviewed the importance of finishing as well as discussing the minimal impact on her through breast-feeding. (2) Status post section: Assessment and plan: We reviewed the continue importance of rest and avoiding heavy lifting as well as the continued risk of DVT and s/s to be aware of. Will return next week for her routine 2wk post-op visit and dressing removal. Subjective Subjective Narrative: Pt is feeling much better this am. Her appetite is improved and she is hungry for pancakes for breakfast. No fevers since the day of arrival. She had a small BM yesterday. She says her abdominal pain is slowly improving as well though it's still difficult to find an appropriate position to breast-feed where her daughter doesn't kick her incision. Minimal lochia. Exam Physical Exam Vital signs: Temp Pulse Resp BP Pulse Ox 98.4 F 85 18 131/82 98 10/13/23 02:05 10/13/23 02:05 10/13/23 02:05 10/13/23 02:05 10/12/23 16:16 Vital Signs Reviewed: Yes Constitutional Constitutional: no acute distress and cooperative Detailed HEENT Exam Head: Present normocephalic and atraumatic Respiratory Exam Respiratory Exam: Normal Abdominal Exam Abdomen: Tender (mildly) Comments: Dressing clean, dry Fundal Exam Fundus: Below Umbilicus and Firm Extremities Exam Comment: No edema, no calf tenderness Detailed Neurological Exam Neurological: Present alert, oriented X3 and CN II-XII intact Results Hemoglobin/Hematocrit: Hgb 9.9 g/dL (11.2-15.7) L 10/13/23 07:50 Hct 29.4 % (36.0-46.0) L 10/13/23 07:50 Abnormal Lab Findings: Abnormal Labs 10/10/23 10/10/23 10/10/23 14:53 17:55 22:32 WBC 11.39 H 12.30 H RBC 3.14 L 2.98 L Hgb 9.7 L 9.0 L Hct 29.2 L 27.5 L Absolute Neutrophils 9.10 H 9.42 H AST 14 L Total Protein 6.0 L Albumin 2.0 L Urine Protein 30 H Urine Blood Large H Ur Leukocyte Esterase Large H Urine RBC 5-10 H Urine WBC >50 H 10/11/23 10/12/23 10/13/23 06:03 07:38 07:50 WBC 12.33 H 11.91 H 11.72 H RBC 2.89 L 2.98 L 3.24 L Hgb 8.7 L 9.0 L 9.9 L Hct 27.0 L 27.6 L 29.4 L Absolute Neutrophils 9.72 H 8.86 H 8.72 H AST Total Protein 5.8 L Albumin 2.0 L Urine Protein Urine Blood Ur Leukocyte Esterase Urine RBC Urine WBC 10/10/23 17:55 Urine - Reflex from Ua Urine Culture - Final Gram Positive Shey,Mixed Gram Negative Casey
[2023-10-13 09:42] VITALS: BP 111/63; PULSE 74; RESP 16; TEMP 36.7; O2SAT 99
--- NOTE | 2023-10-13 10:14 | DSE_ITS ---
Date of service: 10/13/23 Time of Service: 08:30 DS: Diagnosis Discharge Diagnosis (1) Postoperative nausea and vomiting: Asessment and Plan: Continue abx for 10 days total - see note. (2) Status post section: Asessment and Plan: f/u next week - see note. Discharge Plan Disposition Patient Disposition: Home Condition: Good Discharge Details Reason For Visit: Post Op Nausea Admit Date/Time: 10/10/23 14:39 Admit Provider: Dawna Mcbride Attending Provider: Dawna Mcbride Primary Care Provider: Unknown,Unknown Hospital Course Hospital Course: Treated with 24hrs of Cefoxitin for possible infection, switched to PO abx. Sxms improved 2.5 days after admission so she was discharged home on PO abx for 10 days total. Home Meds and New Rx's Prescriptions: New amoxicillin-pot clavulanate 875-125 mg tablet 1 tab PO Q12H Qty: 18 0RF famotidine 20 mg tablet 20 mg PO BID Qty: 60 2RF Continued full well PO ibuprofen 800 mg tablet 800 mg PO Q8H PRNQty: 90 1RF Discontinued (DME) lancets [OneTouch Delica Plus Lancet] 33 gauge misc See Rx Instructions .Route Qty: 100 2RF Rx Instructions: As directed 4x daily (DME) blood-glucose meter [OneTouch Ultra2 Meter] Misc See Rx Instructions .Route Qty: 1 0RF Rx Instructions: As directed - use 4x daily docusate sodium [Colace] 100 mg capsule 100 mg PO BID Qty: 60 0RF Discharge Instructions Stand Alone Forms: BC Discharge Instruc Activity:: No lifting >20lbs Equipment/Supplies:: No Equipment Needed Diet:: As Tolerated Discharge Orders Discharge Orders: Discharge Order (Routine); Ordered 10/13/23 Ordered By: Macarena Correia Discharge Data Discharge Date/Time-TO BE ENTERED AT DEPARTURE: 10/13/23 09:43 OB:DS Summary Contraception Discussed Contraception Discussed: No, Status at Discharge Functional status at discharge: independent ambulation Overall status at discharge: patient is back to baseline Mental Status: mental status grossly normal Speech and Movement: speech and movement normal Mood: congruent mood Affect: normal affect Quality:SDOH Health Related Social Needs: No Data to Display Exam Physical Exam Vital signs: Temp Pulse Resp BP Pulse Ox 98.1 F 74 16 111/63 99 10/13/23 09:42 10/13/23 09:42 10/13/23 09:42 10/13/23 09:42 10/13/23 09:42 [facility] Medical History (Updated 10/13/23 @ 08:52 by Macarena Correia MD) Postoperative nausea and vomiting improved s/p 3 days and 24hr cefoxitin for possible infection Gestational diabetes mellitus (GDM) AC >99%ile Surgical History (Updated 10/13/23 @ 08:52 by Macarena Correia MD) Status post section Teed uterine incision through the contractile portion of the myometrium. Not a candidate for labor or vaginal in the future Social History Smoking/Tobacco Use Status: Never Smoking risk assessment performed?: Yes Alcohol Intake: current Housing: house Do you feel safe at home: Yes Do you feel safe in your relationship?: Yes History History 1 Para 1 Hx # Term Pregnancies Multiple births Hx # Pregnancies Ectopic pregnancies AB induced Hx Number of Living Children AB spontaneous Past Pregnancies Del. Date GA/Weeks # Preg Succ Route Wgt Sex Labor Lgth Anesth esia Location Prov Complic Unknown 40 No Yes 8 lb 3 oz Female 20 [facility]/[place] other Delivery Date: Last Updated by: Dawna Mcbride, DO 10-hour second stage, fundal uterine incision. Not a candidate for trial of labor DS: Data Vitals/I&O Vitals and I&O: Vital Signs Temperature 98.1 F 10/13/23 09:42 Temperature Source Oral 10/13/23 09:42 Pulse 74 10/13/23 09:42 Pulse Rhythm Regular 10/12/23 21:00 Respiratory Rate 16 10/13/23 09:42 Respiratory Effort Normal 10/12/23 21:00 Respiratory Depth Normal 10/12/23 21:00 Respiratory Pattern Normal 10/12/23 21:00 Blood Pressure 111/63 10/13/23 09:42 Pulse Oximetry 99 10/13/23 09:42 Oxygen Delivery Method Room Air 10/13/23 09:42 Oxygen Flow Rate 0 10/13/23 09:42 Pain Level 0 10/13/23 08:39 Comment pt just got back from the bathroom 10/12/23 02:24 Intake & Output 10/12/23 10/12/23 10/13/23 11:59 23:59 11:59 Intake Total 2100 / 2400 900 / 900 Output Total 750 / 2940 1890 / 2940 600 / 600 Balance 1350 / -540 -1890 / -540 300 / 300 Intake: IV 2100 / 2100 Oral 900 / 900 Output: Urine 750 / 2850 1800 / 2850 600 / 600 Emesis 90 / 90 Other: Urine Appearance Clear Clear Data Completed and Pending Labs on day of discharge: Labs from last 24 hours 10/13/23 07:50 WBC 11.72 H RBC 3.24 L Hgb 9.9 L Hct 29.4 L MCV 91 MCH 30.6 MCHC 33.7 RDW 13.0 Plt Count 390 MPV 9.4 Immature Gran % 2.6 Neutrophils % 74.4 Lymphocytes % 16.2 Monocytes % 4.4 Eosinophils % 1.5 Basophils % 0.9 Nucleated RBC % 0.0 Absolute Neutrophils 8.72 H Absolute Lymphocytes 1.90 Absolute Monocytes 0.52 Absolute Eosinophils 0.18 Absolute Basophils 0.11 Sodium 140 Potassium 3.8 Chloride 105 Carbon Dioxide 25.0 Anion Gap 10.0 BUN 8 Creatinine 0.6 Est GFR (CKD-EPI 2020) 118.49 Glucose 89 Calcium 8.6 Total Bilirubin 0.3 AST 21 ALT 28 Alkaline Phosphatase 111 Total Protein 5.8 L Albumin 2.0 L
== END 2023-10-13 09:43 | disposition home or self-care (01) ==
PROVIDERS: Obstetrics & Gynecology; Admitting Provider Obstetrics & Gynecology; Visit Provider Obstetrics & Gynecology
DX: O86.12 Endometritis following delivery (principal); O90.89 Other complications of the puerperium, not elsewhere classified; R11.2 Nausea with vomiting, unspecified; N85.8 Other specified noninflammatory disorders of uterus; D72.829 Elevated white blood cell count, unspecified
CPT/HCPCS: 36415; 80053; 87493; 96361; 96365; 96366; 96367; 96372; 96375; 96376; 81003; 81015; 83605; 85025; 87086; J0131; J2405; J2765

== ENCOUNTER 2025-03-24 03:24 | Outpatient (CLI) | payer MEDICAID, SELFPAY ==
[2025-03-25 00:51] LABS: Hepatitis C Ab w Rflx HCV PCR Negative (Negative)
[2025-03-25 01:21] LABS: HIV-1/2 Ag & Ab Screen Negative (Negative)
[2025-03-25 10:15] LABS: Rubella IgG Ab (UVM) Positive (See Note)
[2025-03-26 21:34] LABS: Syphilis IgG w/Reflex Nonreactive (Nonreactive)
== END 2025-03-24 03:25 | disposition home or self-care (01) ==
LOC: LBO 03:24
PROVIDERS: PCP Advanced Practice Midwife; Visit Provider Advanced Practice Midwife
DX: Z34.92 Encounter for supervision of normal pregnancy, unspecified, second trimester (principal); Z3A.12 12 weeks gestation of pregnancy
CPT/HCPCS: 36415; 86803; 86850; 86900; 86901; 87340; 87389; 86762; 86780

== ENCOUNTER 2025-03-24 15:11 | Outpatient (REF) | payer MEDICAID, SELFPAY ==
[2025-03-26 12:05] LABS: Chlamydia Result Negative (Negative); GC Result Negative (Negative)
== END 2025-03-24 15:12 | disposition home or self-care (01) ==
LOC: LBN 15:11
PROVIDERS: PCP Advanced Practice Midwife; Visit Provider Advanced Practice Midwife
DX: Z34.92 Encounter for supervision of normal pregnancy, unspecified, second trimester; Z3A.12 12 weeks gestation of pregnancy; R82.89 Other abnormal findings on cytological and histological examination of urine
CPT/HCPCS: 80307; 87491; 87591; 87086